=== PATIENT | male | born 1960 | race Two or more races ===

== ENCOUNTER 2017-03-31 11:08 | Inpatient (IN) | payer MEDICAID, OTHER ==
[~2017-03-31] VITALS: Ht 160 cm; Wt 96.6 kg
[2017-03-31] MEDS ORDERED: ASPirin 81 mg TAB ONE (11:27)
[2017-03-31] MEDS ORDERED: DILTIAZEM HCL 25 MG/5 ML VIAL IV ONE ×2 (11:27→12:00)
[2017-03-31] MEDS ORDERED: SODIUM CHLORIDE 0.9% 1,000 ML IVB ONE (11:41)
[2017-03-31] MEDS ORDERED: ASPirin 81 mg TAB PO ONE ×2 (11:45→12:00)
[2017-03-31 11:47] LABS: Basophils # (auto) 0 uL; Basophils % (auto) 0.3 % (0.0-2.0); CONDITION Y; Eosinophils # (auto) 0.1 uL; Eosinophils % (auto) 0.7 % (0.0-7.0); Hemoglobin 16.5 g/dL (13.5-17.5); Lymphocytes # (auto) 2.9 uL; Lymphocytes % (auto) 31.9 % (10.0-50.0); Mean Corpuscular Hemoglobin 30.8 pg (28.0-32.0); Mean Corpuscular Hgb Conc. 33.7 g/dL (32.0-36.0); Mean Corpuscular Volume 91.6 fL (80.0-100.0); Mean Platelet Volume 9.3 fL (7.4-10.4); Monocytes # (auto) 0.6 uL; Neutrophils # (auto) 5.4 uL; Neutrophils % (auto) 60.1 % (37.0-80.0); Platelet Count (auto) 249 10^3/uL (140-450); Red Cell Distribution Width 13.7 % (11.6-16.0)
[2017-03-31] MEDS ORDERED: ONDANSETRON HCL 4 MG/2 ML VIAL IV ONE (12:00)
[2017-03-31 12:04] LABS: Potassium 4.4 mmol/L (3.5-5.1)
[2017-03-31 12:06] LABS: INR 0.99 (0.9-1.15); Partial Thromboplastin Time 26.1 sec (22.64-33.71); Prothrombin Time 10.8 sec (9.37-12.3)
[2017-03-31 12:12] LABS: Albumin 4.3 g/dL (3.4-5.0); BUN/Creatinine Ratio 17.1; Calcium 9.3 mg/dL (8.5-10.1); Magnesium 2.6 mg/dL (1.6-2.6)
[2017-03-31 12:14] LABS: B-Type Natriuretic Peptide 146.7 pg/mL (0-100)
[2017-03-31 12:15] LABS: Bilirubin, Total 0.6 mg/dL (0.2-1.0); Total Protein 8.5 g/dL (6.4-8.2)
[2017-03-31 12:25] LABS: Temperature: 23.3 C (20.0-25.0)
[2017-03-31] MEDS ORDERED: ACETAMINOPHEN 500 MG TAB PO PRN (13:15)
[2017-03-31] MEDS ORDERED: TEMAZEPAM 15 MG CAP PO PRN (13:15)
[2017-03-31] MEDS ORDERED: LORazepam 0.5 MG TAB PO PRN (13:15)
[2017-03-31] MEDS ORDERED: DEXTROSE (50%) 50ML SYRG IV PRN (13:15)
[2017-03-31] MEDS ORDERED: PROMETHAZINE HCL 25 MG/ML 1ML IV PRN (13:15)
[2017-03-31] MEDS ORDERED: LACTULOSE 20Gm/30ML SOLN PO PRN ×2 (13:15→16:02)
[2017-03-31] MEDS ORDERED: MORPHINE SULF INJ 2 MG/ML SYRINGE 1ML IV PRN ×2 (13:15)
[2017-03-31] MEDS ORDERED: NITROGLYCERIN 0.4 MG SL TAB SL PRN (13:15)
[2017-03-31] MEDS ORDERED: METOPROLOL TARTRATE 25 MG TAB PO ONE (13:45)
[2017-03-31] MEDS ORDERED: PANTOPRAZOLE 40 MG TAB PO ONE (13:45)
[2017-03-31] MEDS: SODIUM CHLORIDE 0.9% 1,000 ML IV SCH (13:45)
[2017-03-31] MEDS ORDERED: ENOXAPARIN SOD 100 MG/1 ML SYRINGE SC ONE (13:45)
[2017-03-31] MEDS: SODIUM CHLOR 0.9% PF (SALINE LOCK) 10ML VIAL IV SCH ×2 (13:53→22:00)
[2017-03-31] MEDS ORDERED: WARFARIN SODIUM 5 MG TAB PO ONE (17:00)
[2017-03-31] MEDS: ACCU-CHEK COMFORT CURVE STRIP VI SCH (17:56)
[2017-03-31] MEDS: METOPROLOL TARTRATE 25 MG TAB PO SCH (23:13)
[2017-03-31] MEDS: ENOXAPARIN SOD 100 MG/1 ML SYRINGE SC SCH (23:13)
[2017-03-31] MEDS: ATORVASTATIN 20 MG TAB PO SCH (23:13)
[2017-04-01] MEDS: ACCU-CHEK COMFORT CURVE STRIP VI SCH ×5 (00:08→23:16)
[2017-04-01] MEDS: SODIUM CHLORIDE 0.9% 1,000 ML IV SCH ×2 (03:07→19:50)
[2017-04-01] MEDS: SODIUM CHLOR 0.9% PF (SALINE LOCK) 10ML VIAL IV SCH ×3 (06:00→23:00)
[2017-04-01 06:28] LABS: Basophils # (auto) 0 uL; Basophils % (auto) 0.3 % (0.0-2.0); CONDITION Y; Eosinophils # (auto) 0.1 uL; Eosinophils % (auto) 1.8 % (0.0-7.0); Hematocrit 40.2 % (41.0-53.0); Hemoglobin 13.5 g/dL (13.5-17.5); Lymphocytes # (auto) 2.4 uL; Lymphocytes % (auto) 34.1 % (10.0-50.0); Mean Corpuscular Hemoglobin 31.3 pg (28.0-32.0); Mean Corpuscular Hgb Conc. 33.7 g/dL (32.0-36.0); Mean Corpuscular Volume 92.9 fL (80.0-100.0); Monocytes # (auto) 0.6 uL; Neutrophils # (auto) 3.9 uL; Neutrophils % (auto) 55.8 % (37.0-80.0); Platelet Count (auto) 188 10^3/uL (140-450); White Blood Cell 6.9 10^3/uL (4.4-10.8)
[2017-04-01 06:37] LABS: INR 1.09 (0.9-1.15); Prothrombin Time 11.9 sec (9.37-12.3)
[2017-04-01 07:12] LABS: Albumin 3.3 g/dL (3.4-5.0); Bilirubin, Total 0.4 mg/dL (0.2-1.0); Calcium 8.2 mg/dL (8.5-10.1); Total Protein 6.6 g/dL (6.4-8.2)
[2017-04-01 07:27] LABS: B-Type Natriuretic Peptide 231.8 pg/mL (0-100)
[2017-04-01 07:30] LABS: Temperature: 22.5 C (20.0-25.0)
[2017-04-01] MEDS ORDERED: LORazepam 2MG/ML-1ML VIAL ONE (08:48)
[2017-04-01] MEDS ORDERED: LORazepam 2MG/ML-1ML VIAL IV ONE (09:00)
[2017-04-01] MEDS ORDERED: ADENOSINE 76 MG in GIVE UN-DILUTED 0 ML IV ONE (10:00)
[2017-04-01] MEDS: ASPirin 81 mg TAB PO SCH (13:37)
[2017-04-01] MEDS: METOPROLOL TARTRATE 25 MG TAB PO SCH ×2 (13:37→23:01)
[2017-04-01] MEDS: PANTOPRAZOLE 40 MG TAB PO SCH (13:38)
[2017-04-01] MEDS: ENOXAPARIN SOD 100 MG/1 ML SYRINGE SC SCH ×2 (13:38→23:01)
[2017-04-01] MEDS ORDERED: WARFARIN SODIUM 10 MG TAB PO ONE (17:00)
[2017-04-01] MEDS ORDERED: LORA-655 PO (21:29)
[2017-04-01] MEDS ORDERED: ASPI81TA27 PO (21:29)
[2017-04-01] MEDS ORDERED: PIRO-23 PO (21:29)
[2017-04-01] MEDS ORDERED: CITA-77 PO (21:29)
[2017-04-01] MEDS ORDERED: IBUP800T24 PO (21:29)
[2017-04-01] MEDS ORDERED: SIMV-13 PO (21:29)
[2017-04-01] MEDS ORDERED: METO25TA5 PO (21:29)
[2017-04-01 22:00] VITALS: BP 109/74
[2017-04-01] MEDS: ATORVASTATIN 20 MG TAB PO SCH (23:01)
[2017-04-02] MEDS: SODIUM CHLOR 0.9% PF (SALINE LOCK) 10ML VIAL IV SCH ×3 (04:34→21:36)
[2017-04-02] MEDS: SODIUM CHLORIDE 0.9% 1,000 ML IV SCH ×2 (04:34→16:26)
[2017-04-02 05:30] VITALS: BP 123/85
[2017-04-02] MEDS: ACCU-CHEK COMFORT CURVE STRIP VI SCH ×4 (05:32→23:45)
[2017-04-02 05:51] LABS: INR 1.45 (0.9-1.15)
[2017-04-02 05:53] LABS: Prothrombin Time 15.9 sec (9.37-12.3)
[2017-04-02] MEDS ORDERED: IOHEXOL 350 MG/ML 100ML IJ ONE (07:20)
[2017-04-02] MEDS ORDERED: LIDOCAINE 2%HCL (LOCAL ANESTH.) INJ 20ML MDV ONE (07:20)
[2017-04-02] MEDS ORDERED: fentaNYL CITRATE 100 MCG/2 ML VL ONE (07:42)
[2017-04-02] MEDS ORDERED: SODIUM CHL 0.9% 0 ML ONE (07:42)
[2017-04-02] MEDS ORDERED: ANGIOMAX 250 MG VIAL IV ONE (07:42)
[2017-04-02] MEDS ORDERED: MIDAZOLAM HCL 1MG/1ML-2 ML VIAL ONE (07:42)
[2017-04-02 08:00] VITALS: BP 114/82
[2017-04-02] MEDS ORDERED: SODIUM CHLORIDE 0.9% 1,000 ML IV SCH (08:26)
[2017-04-02] MEDS: ASPirin 81 mg TAB PO SCH (10:00)
[2017-04-02 10:30] VITALS: BP 141/82
[2017-04-02 13:00] VITALS: BP 119/72
[2017-04-02] MEDS: HYDROcodone-ACET 5/325MG TAB PO PRN ×3 (14:32→23:01)
[2017-04-02] MEDS: CLOPIDOGREL BISULFATE 75 MG TAB PO SCH (15:15)
[2017-04-02] MEDS: PANTOPRAZOLE 40 MG TAB PO SCH (15:15)
[2017-04-02] MEDS: ENOXAPARIN SOD 100 MG/1 ML SYRINGE SC SCH ×2 (15:16→21:37)
[2017-04-02] MEDS: METOPROLOL TARTRATE 25 MG TAB PO SCH ×2 (15:45→21:37)
[2017-04-02 16:45] VITALS: BP 113/82
[2017-04-02] MEDS ORDERED: WARFARIN SODIUM 2.5 MG TAB PO ONE (17:00)
[2017-04-02] MEDS: ATORVASTATIN 20 MG TAB PO SCH (21:36)
[2017-04-02 21:42] VITALS: BP 122/81
[2017-04-03 04:37] VITALS: BP 116/76
[2017-04-03 05:22] LABS: Basophils # (auto) 0 uL; Basophils % (auto) 0.3 % (0.0-2.0); CONDITION Y; Eosinophils # (auto) 0.1 uL; Eosinophils % (auto) 1.4 % (0.0-7.0); Hemoglobin 13.1 g/dL (13.5-17.5); Lymphocytes # (auto) 2.4 uL; Lymphocytes % (auto) 32.6 % (10.0-50.0); Mean Corpuscular Hgb Conc. 33.7 g/dL (32.0-36.0); Mean Corpuscular Volume 91.9 fL (80.0-100.0); Mean Platelet Volume 9.2 fL (7.4-10.4); Monocytes # (auto) 0.6 uL; Monocytes % (auto) 8.7 % (0.0-12.0); Neutrophils # (auto) 4.1 uL; Platelet Count (auto) 169 10^3/uL (140-450); Red Cell Distribution Width 13.9 % (11.6-16.0); White Blood Cell 7.3 10^3/uL (4.4-10.8)
[2017-04-03 05:32] LABS: INR 2.19 (0.9-1.15)
[2017-04-03 05:36] LABS: Prothrombin Time 24.1 sec (9.37-12.3)
[2017-04-03 05:38] LABS: BUN/Creatinine Ratio 22.6; Calcium 8.3 mg/dL (8.5-10.1); Potassium 4.5 mmol/L (3.5-5.1)
[2017-04-03] MEDS: SODIUM CHLOR 0.9% PF (SALINE LOCK) 10ML VIAL IV SCH (06:13)
[2017-04-03] MEDS: ACCU-CHEK COMFORT CURVE STRIP VI SCH (06:13)
[2017-04-03] MEDS: SODIUM CHLORIDE 0.9% 1,000 ML IV SCH (07:52)
[2017-04-03 09:00] VITALS: BP 126/81
[2017-04-03] MEDS: ASPirin 81 mg TAB PO SCH (10:12)
[2017-04-03] MEDS: CLOPIDOGREL BISULFATE 75 MG TAB PO SCH (10:13)
[2017-04-03] MEDS: PANTOPRAZOLE 40 MG TAB PO SCH (10:13)
[2017-04-03] MEDS: METOPROLOL TARTRATE 25 MG TAB PO SCH (10:13)
[2017-04-03] MEDS: ENOXAPARIN SOD 100 MG/1 ML SYRINGE SC SCH (10:14)
[2017-04-03 11:28] VITALS: BP 126/81
[2017-04-03] MEDS ORDERED: WARFARIN SODIUM 2 MG TAB PO ONE (17:00)
== END 2017-04-03 12:47 | disposition home or self-care (01) | DRG 192 ==
LOC: ER 11:08 → TELE 11:09 → TELE-WESTW 04-01 20:33
PROVIDERS: ADMIT Internal Medicine; ATTEND Family Medicine
PROC: 4A023N7 Measurement of Cardiac Sampling and Pressure, Left Heart, Percutaneous Approach (ICD-10-PCS; principal; 2017-04-02)
PROC: B2111ZZ Fluoroscopy of Multiple Coronary Arteries using Low Osmolar Contrast (ICD-10-PCS; 2017-04-02)
PROC: B2151ZZ Fluoroscopy of Left Heart using Low Osmolar Contrast (ICD-10-PCS; 2017-04-02)
DX: I48.91 Unspecified atrial fibrillation (principal); I50.41 Acute combined systolic (congestive) and diastolic (congestive) heart failure; N17.9 Acute kidney failure, unspecified; D68.69 Other thrombophilia; I42.0 Dilated cardiomyopathy; E66.01 Morbid (severe) obesity due to excess calories; I11.0 Hypertensive heart disease with heart failure; E78.5 Hyperlipidemia, unspecified; I25.10 Atherosclerotic heart disease of native coronary artery without angina pectoris; I25.5 Ischemic cardiomyopathy; I44.7 Left bundle-branch block, unspecified; Q21.9 Congenital malformation of cardiac septum, unspecified; I25.2 Old myocardial infarction; Z95.5 Presence of coronary angioplasty implant and graft; Z79.01 Long term (current) use of anticoagulants; Z82.49 Family history of ischemic heart disease and other diseases of the circulatory system; Z83.3 Family history of diabetes mellitus; Z68.37 Body mass index [BMI] 37.0-37.9, adult
CPT/HCPCS: 36415; 71010; 80048; 80053; 80061; 80307; 82550; 82962; 83036; 83735; 83880; 84443; 84484; 85025; 85379; 85610; 85652; 85730; 86141; 93005; 93017; 93306; 93458; 96361; 96374; 96375; 99152; 99291; J0153; J2250; J2405

== ENCOUNTER 2017-08-21 03:40 | Inpatient (IN) | payer MEDICAID ==
[~2017-08-21] VITALS: Ht 162.6 cm; Wt 90.8 kg
[~2017-08-21 03:40] MED LIST: ASPI81TA27 PO; ENAL2.5T PO; FENO54TA4 PO; LORA-655 PO; METO25TA5 PO; SIMV-13 PO; SPIR25TA89 PO; WARF2TAB49 PO
[2017-08-21] MEDS ORDERED: SODIUM CHLORIDE 0.9% 1,000 ML IV ONE (08:25)
[2017-08-21 10:32] LABS: Basophils # (auto) 0 uL; Basophils % (auto) 0.4 % (0.0-2.0); Eosinophils # (auto) 0 uL; Eosinophils % (auto) 0.1 % (0.0-7.0); Hematocrit 45.2 % (41.0-53.0); Lymphocytes # (auto) 1.7 uL; Lymphocytes % (auto) 15.7 % (10.0-50.0); Mean Corpuscular Hemoglobin 30.6 pg (28.0-32.0); Mean Corpuscular Hgb Conc. 33.2 g/dL (32.0-36.0); Mean Corpuscular Volume 92.1 fL (80.0-100.0); Monocytes # (auto) 0.6 uL; Monocytes % (auto) 5.3 % (0.0-12.0); Neutrophils # (auto) 8.7 uL; Neutrophils % (auto) 78.5 % (37.0-80.0); Nucleated Red Blood Cells % 0.1 %; Platelet Count (auto) 213 10^3/uL (140-450); Red Blood Cells 4.91 10^6/uL (4.5-5.90); White Blood Cell 11.1 10^3/uL (4.4-10.8)
[2017-08-21 10:47] LABS: INR 2.12 (0.9-1.15); Partial Thromboplastin Time 32.9 sec (22.64-33.71); Prothrombin Time 23.3 sec (9.37-12.3)
[2017-08-21 10:53] LABS: Albumin 4.2 g/dL (3.4-5.0); BUN/Creatinine Ratio 28.9; Bilirubin, Total 0.5 mg/dL (0.2-1.0); Calcium 8.9 mg/dL (8.5-10.1); Magnesium 2.5 mg/dL (1.6-2.6); Potassium 4.6 mmol/L (3.5-5.1); Total Protein 8.1 g/dL (6.4-8.2)
[2017-08-21] MEDS ORDERED: HYDROcodone-ACET 5/325MG TAB PO PRN (12:00)
[2017-08-21] MEDS ORDERED: MORPHINE SULF INJ 2 MG/ML SYRINGE 1ML IV PRN (12:00)
[2017-08-21] MEDS ORDERED: LACTULOSE 20Gm/30ML SOLN PO PRN (12:00)
[2017-08-21] MEDS ORDERED: PROMETHAZINE HCL 25 MG/ML 1ML IV PRN (12:00)
[2017-08-21] MEDS ORDERED: NITROGLYCERIN 0.4 MG SL TAB SL PRN (12:00)
[2017-08-21] MEDS ORDERED: ACETAMINOPHEN 500 MG TAB PO PRN (12:00)
[2017-08-21] MEDS ORDERED: TEMAZEPAM 15 MG CAP PO PRN (12:00)
[2017-08-21] MEDS ORDERED: MORPHINE SULFATE 4 MG/ML SYR/VIAL IV PRN (12:00)
[2017-08-21] MEDS ORDERED: ENALAPRIL MALEATE 10 MG TAB PO SCH (12:26)
[2017-08-21] MEDS ORDERED: METOPROLOL TARTRATE 25 MG TAB PO SCH (12:26)
[2017-08-21] MEDS: NITROGLYCERIN 0.2MG/HR TOPICAL PATCH TD SCH (12:44)
[2017-08-21] MEDS: SPIRONOLACTONE 25 MG TAB PO SCH (12:44)
[2017-08-21 13:14] LABS: Urine Bacteria NONE SEEN /hpf (None Seen); Urine Blood Negative /uL (Negative); Urine Budding Yeast OCCASIONAL /hpf (None Seen); Urine WBC 1 /hpf (0 - 3)
[2017-08-21 13:23] LABS: Alcohol, Urine < 3.0 mg/dL (0-5); Amphetamine Screen, Urine NEGATIVE (NEGATIVE); Barbiturate Scree,Urine NEGATIVE (NEGATIVE); Benzodiazephine Screen, Urine NEGATIVE (NEGATIVE); Cannabinoid Screen, Urine NEGATIVE (NEGATIVE); Cocaine Screen, Urine NEGATIVE (NEGATIVE); Opiate Scree,Urine NEGATIVE (NEGATIVE); Phencyclidine Screen, Urine NEGATIVE (NEGATIVE)
[2017-08-21] MEDS: SODIUM CHLOR 0.9% PF (SALINE LOCK) 10ML VIAL IV SCH ×2 (14:02→22:01)
[2017-08-21] MEDS ORDERED: LOSA50TA6 PO (16:09)
[2017-08-21] MEDS ORDERED: WARFARIN SODIUM 2 MG TAB PO ONE (17:00)
[2017-08-21] MEDS: ATORVASTATIN 20 MG TAB PO SCH (22:01)
[2017-08-21] MEDS: METOPROLOL SUCCINATE XL 50 MG TAB PO SCH (22:01)
[2017-08-21] MEDS: ASPirin-EC 81 mg tab PO SCH (22:01)
[2017-08-21] MEDS ORDERED: LORazepam 0.5 MG TAB PO PRN (22:15)
[2017-08-22] MEDS: SODIUM CHLOR 0.9% PF (SALINE LOCK) 10ML VIAL IV SCH ×3 (05:32→22:00)
[2017-08-22 07:57] LABS: Basophils # (auto) 0 uL; Basophils % (auto) 0.3 % (0.0-2.0); Eosinophils # (auto) 0 uL; Eosinophils % (auto) 0.6 % (0.0-7.0); Hematocrit 43.9 % (41.0-53.0); Hemoglobin 14.7 g/dL (13.5-17.5); Lymphocytes # (auto) 2.3 uL; Lymphocytes % (auto) 27.2 % (10.0-50.0); Mean Corpuscular Hemoglobin 31.2 pg (28.0-32.0); Mean Corpuscular Hgb Conc. 33.5 g/dL (32.0-36.0); Mean Corpuscular Volume 92.9 fL (80.0-100.0); Monocytes # (auto) 0.8 uL; Monocytes % (auto) 9.4 % (0.0-12.0); Neutrophils # (auto) 5.3 uL; Neutrophils % (auto) 62.5 % (37.0-80.0); Platelet Count (auto) 209 10^3/uL (140-450); Red Blood Cells 4.72 10^6/uL (4.5-5.90); Red Cell Distribution Width 13.8 % (11.8-14.3); White Blood Cell 8.5 10^3/uL (4.4-10.8)
[2017-08-22 08:15] LABS: INR 1.62 (0.9-1.15); Partial Thromboplastin Time 30.6 sec (22.64-33.71); Prothrombin Time 17.7 sec (9.37-12.3)
[2017-08-22 08:32] LABS: BUN/Creatinine Ratio 22.9; Bilirubin, Total 0.7 mg/dL (0.2-1.0); Calcium 8.8 mg/dL (8.5-10.1); Potassium 3.9 mmol/L (3.5-5.1); Total Protein 7.9 g/dL (6.4-8.2)
[2017-08-22] MEDS: NITROGLYCERIN 0.2MG/HR TOPICAL PATCH TD SCH (10:00)
[2017-08-22] MEDS ORDERED: LOSARTAN POTASSIUM 50 MG TAB PO SCH (10:00)
[2017-08-22] MEDS: Fenofibrate 48 MG PO SCH (10:52)
[2017-08-22] MEDS: SPIRONOLACTONE 25 MG TAB PO SCH (10:55)
[2017-08-22] MEDS: METOPROLOL SUCCINATE XL 50 MG TAB PO SCH ×2 (10:55→22:39)
[2017-08-22] MEDS ORDERED: WARFARIN SODIUM 2 MG TAB PO ONE (17:00)
[2017-08-22] MEDS: ASPirin-EC 81 mg tab PO SCH (22:38)
[2017-08-22] MEDS: ATORVASTATIN 20 MG TAB PO SCH (22:38)
[2017-08-23 05:16] VITALS: BP 118/74
[2017-08-23 06:02] LABS: INR 1.67 (0.9-1.15); Partial Thromboplastin Time 30.3 sec (22.64-33.71); Prothrombin Time 18.3 sec (9.37-12.3)
[2017-08-23] MEDS: SODIUM CHLOR 0.9% PF (SALINE LOCK) 10ML VIAL IV SCH ×2 (06:29→13:29)
[2017-08-23 07:30] VITALS: BP 127/79
[2017-08-23 09:00] VITALS: BP 129/79
[2017-08-23] MEDS: Fenofibrate 48 MG PO SCH (10:00)
[2017-08-23] MEDS: NITROGLYCERIN 0.2MG/HR TOPICAL PATCH TD SCH (10:04)
[2017-08-23] MEDS: SPIRONOLACTONE 25 MG TAB PO SCH (10:04)
[2017-08-23] MEDS: METOPROLOL SUCCINATE XL 50 MG TAB PO SCH (10:04)
[2017-08-23 13:00] VITALS: BP 112/66
[2017-08-23] MEDS ORDERED: SPIR25TA89 PO (15:24)
[2017-08-23] MEDS ORDERED: METO25TA5 PO (15:24)
[2017-08-23] MEDS ORDERED: LOSA50TA6 PO (15:24)
[2017-08-23 16:55] VITALS: BP 108/70
[2017-08-23] MEDS ORDERED: WARFARIN SODIUM 2 MG TAB PO ONE (17:00)
[2017-08-23 18:14] VITALS: BP 127/79
[2017-08-23] MEDS ORDERED: LOSARTAN POTASSIUM 50 MG TAB PO SCH (20:00)
== END 2017-08-23 19:14 | disposition home or self-care (01) | DRG 206 ==
LOC: EDBD 03:40 → ER 03:40 → EDUNIT# 03:40 → TELE 03:41 → TELE-WESTW 08-22 19:36
PROVIDERS: ADMIT Internal Medicine; ATTEND Internal Medicine
PROC: 4B02XTZ Measurement of Cardiac Defibrillator, External Approach (ICD-10-PCS; principal; 2017-08-21)
DX: T82.897A Other specified complication of cardiac prosthetic devices, implants and grafts, initial encounter (principal); I42.0 Dilated cardiomyopathy; I50.20 Unspecified systolic (congestive) heart failure; I11.0 Hypertensive heart disease with heart failure; I47.1 Supraventricular tachycardia; D68.69 Other thrombophilia; I48.0 Paroxysmal atrial fibrillation; G40.909 Epilepsy, unspecified, not intractable, without status epilepticus; E78.5 Hyperlipidemia, unspecified; M47.814 Spondylosis without myelopathy or radiculopathy, thoracic region; I25.10 Atherosclerotic heart disease of native coronary artery without angina pectoris; M19.90 Unspecified osteoarthritis, unspecified site; E66.9 Obesity, unspecified; Y84.8 Other medical procedures as the cause of abnormal reaction of the patient, or of later complication, without mention of misadventure at the time of the procedure; I25.5 Ischemic cardiomyopathy; Z79.01 Long term (current) use of anticoagulants; Z82.49 Family history of ischemic heart disease and other diseases of the circulatory system; Z83.3 Family history of diabetes mellitus; Z86.73 Personal history of transient ischemic attack (TIA), and cerebral infarction without residual deficits; Z95.5 Presence of coronary angioplasty implant and graft; Z95.810 Presence of automatic (implantable) cardiac defibrillator; Y92.89 Other specified places as the place of occurrence of the external cause; Z68.34 Body mass index [BMI] 34.0-34.9, adult
CPT/HCPCS: 36415; 71020; 80053; 80061; 80307; 81001; 82550; 83735; 84443; 84484; 85025; 85379; 85610; 85652; 85730; 86141; 93005; 94761

== ENCOUNTER 2017-09-03 15:44 | Inpatient (IN) | payer MEDICAID ==
[~2017-09-03] VITALS: Ht 154.9 cm; Wt 88.9 kg
[~2017-09-03 15:44] MED LIST changes: -ENAL2.5T PO; +LOSA50TA6 PO
[2017-09-03 16:36] LABS: Basophils # (auto) 0.1 uL; Basophils % (auto) 1.1 % (0.0-2.0); Eosinophils # (auto) 0.1 uL; Eosinophils % (auto) 0.8 % (0.0-7.0); Hematocrit 41.4 % (41.0-53.0); Hemoglobin 14.1 g/dL (13.5-17.5); Lymphocytes % (auto) 18.4 % (10.0-50.0); Mean Corpuscular Hgb Conc. 34.1 g/dL (32.0-36.0); Monocytes % (auto) 8.9 % (0.0-12.0); Neutrophils # (auto) 7.6 uL; Neutrophils % (auto) 70.8 % (37.0-80.0); Nucleated Red Blood Cells % 0.1 %; Platelet Count (auto) 238 10^3/uL (140-450); Red Blood Cells 4.55 10^6/uL (4.5-5.90); Red Cell Distribution Width 13.7 % (11.8-14.3); White Blood Cell 10.7 10^3/uL (4.4-10.8)
[2017-09-03 16:53] LABS: BUN/Creatinine Ratio 14.5; Calcium 8.8 mg/dL (8.5-10.1); Potassium 4.2 mmol/L (3.5-5.1)
[2017-09-03 16:56] LABS: Bilirubin, Total 0.3 mg/dL (0.2-1.0); Total Protein 7.8 g/dL (6.4-8.2)
[2017-09-03 17:45] LABS: INR > 10 (0.9-1.15)
[2017-09-03 22:13] LABS: Urine Bacteria NONE SEEN /hpf (None Seen); Urine Blood 3+ /uL (Negative); Urine Specific Gravity 1.021 (1.001-1.035); Urine WBC 32 /hpf (0 - 3)
[2017-09-03] MEDS ORDERED: PHYTONADIONE (VIT K)10 MG/ML 1ML VIAL SUBCUT ONE (23:00)
[2017-09-03] MEDS ORDERED: LORazepam 0.5 MG TAB ONE (23:15)
[2017-09-03] MEDS ORDERED: LORazepam 0.5 MG TAB PO ONE (23:15)
[2017-09-04] VITALS (7 sets, daily range): BP systolic 108–128; BP diastolic 62–82
[2017-09-04 00:37] LABS: INR > 10 (0.9-1.15)
[2017-09-04] MEDS ORDERED: ONDANSETRON HCL 4 MG/2 ML VIAL IV PRN (01:15)
[2017-09-04] MEDS ORDERED: HYDROcodone-ACET 5/325MG TAB PO PRN (01:15)
[2017-09-04] MEDS ORDERED: ACETAMINOPHEN 500 MG TAB PO PRN (01:15)
[2017-09-04] MEDS ORDERED: LORazepam 0.5 MG TAB PO PRN (01:15)
[2017-09-04] MEDS ORDERED: cefTRIAXone 1GM/10ml IVPUSH 10 ML IV ONE (01:30)
[2017-09-04 07:22] LABS: Basophils # (auto) 0 uL; Basophils % (auto) 0.4 % (0.0-2.0); Eosinophils # (auto) 0.1 uL; Eosinophils % (auto) 0.6 % (0.0-7.0); Hematocrit 39.2 % (41.0-53.0); Hemoglobin 13.3 g/dL (13.5-17.5); Lymphocytes # (auto) 1.8 uL; Lymphocytes % (auto) 20.4 % (10.0-50.0); Mean Corpuscular Hemoglobin 31.1 pg (28.0-32.0); Mean Corpuscular Hgb Conc. 33.9 g/dL (32.0-36.0); Mean Corpuscular Volume 91.6 fL (80.0-100.0); Monocytes # (auto) 0.8 uL; Monocytes % (auto) 9.1 % (0.0-12.0); Neutrophils # (auto) 6.3 uL; Neutrophils % (auto) 69.5 % (37.0-80.0); Nucleated Red Blood Cells % 0.1 %; Platelet Count (auto) 200 10^3/uL (140-450); Red Blood Cells 4.28 10^6/uL (4.5-5.90); White Blood Cell 9.1 10^3/uL (4.4-10.8)
[2017-09-04 07:36] LABS: INR > 10 (0.9-1.15)
[2017-09-04 07:43] LABS: BUN/Creatinine Ratio 22.1; Calcium 8.5 mg/dL (8.5-10.1); Potassium 4.5 mmol/L (3.5-5.1)
[2017-09-04] MEDS: LOSARTAN POTASSIUM 50 MG TAB PO SCH (10:00)
[2017-09-04] MEDS: SPIRONOLACTONE 25 MG TAB PO SCH (11:13)
[2017-09-04] MEDS: METOPROLOL TARTRATE 25 MG TAB PO SCH ×2 (11:13→21:40)
[2017-09-04] MEDS ORDERED: PHYTONADIONE ORAL Susp 10 mg/10ml PO ONE (14:45)
[2017-09-04] MEDS ORDERED: cefTRIAXone 1GM/10ml IVPUSH 10 ML IV SCH (22:00)
[2017-09-05 05:35] LABS: Basophils # (auto) 0 uL; Basophils % (auto) 0.5 % (0.0-2.0); Eosinophils # (auto) 0.1 uL; Eosinophils % (auto) 0.7 % (0.0-7.0); Hematocrit 40.2 % (41.0-53.0); Hemoglobin 13.7 g/dL (13.5-17.5); Lymphocytes # (auto) 2.4 uL; Lymphocytes % (auto) 25.5 % (10.0-50.0); Mean Corpuscular Hemoglobin 31.6 pg (28.0-32.0); Mean Corpuscular Hgb Conc. 34.2 g/dL (32.0-36.0); Mean Corpuscular Volume 92.4 fL (80.0-100.0); Monocytes # (auto) 0.9 uL; Monocytes % (auto) 9.8 % (0.0-12.0); Neutrophils # (auto) 5.9 uL; Neutrophils % (auto) 63.5 % (37.0-80.0); Nucleated Red Blood Cells % 0.5 %; Platelet Count (auto) 242 10^3/uL (140-450); Red Blood Cells 4.35 10^6/uL (4.5-5.90); Red Cell Distribution Width 13.5 % (11.8-14.3); White Blood Cell 9.2 10^3/uL (4.4-10.8)
[2017-09-05 05:48] LABS: Albumin 3.5 g/dL (3.4-5.0); BUN/Creatinine Ratio 19.2; Calcium 8.8 mg/dL (8.5-10.1); INR 1.89 (0.9-1.15); Prothrombin Time 20.7 sec (9.37-12.3)
[2017-09-05 05:50] LABS: Bilirubin, Total 0.7 mg/dL (0.2-1.0); Total Protein 7.2 g/dL (6.4-8.2)
[2017-09-05 06:00] VITALS: BP 112/77
[2017-09-05 08:00] VITALS: BP 112/71
[2017-09-05 09:00] VITALS: BP 116/77
[2017-09-05] MEDS: LOSARTAN POTASSIUM 50 MG TAB PO SCH (10:00)
[2017-09-05] MEDS: SPIRONOLACTONE 25 MG TAB PO SCH (10:46)
[2017-09-05] MEDS: METOPROLOL TARTRATE 25 MG TAB PO SCH (10:47)
[2017-09-05] MEDS ORDERED: WARF6TAB20 PO (12:29)
[2017-09-05 12:50] VITALS: BP 115/80
[2017-09-05 13:00] VITALS: BP 115/80
== END 2017-09-05 14:39 | disposition home or self-care (01) | DRG 661 ==
LOC: ER 15:50 → TELE 15:51 → TELE-EAST 09-04 02:07
PROVIDERS: ADMIT Nurse Practitioner Family; ATTEND Nurse Practitioner Family
DX: D68.32 Hemorrhagic disorder due to extrinsic circulating anticoagulants (principal); I48.92 Unspecified atrial flutter; I10 Essential (primary) hypertension; G40.909 Epilepsy, unspecified, not intractable, without status epilepticus; I48.91 Unspecified atrial fibrillation; T45.515A Adverse effect of anticoagulants, initial encounter; E11.9 Type 2 diabetes mellitus without complications; N39.0 Urinary tract infection, site not specified; R31.9 Hematuria, unspecified; I25.10 Atherosclerotic heart disease of native coronary artery without angina pectoris; Z86.73 Personal history of transient ischemic attack (TIA), and cerebral infarction without residual deficits; Z83.3 Family history of diabetes mellitus; Z79.899 Other long term (current) drug therapy; Z79.82 Long term (current) use of aspirin; Z95.0 Presence of cardiac pacemaker; Z82.49 Family history of ischemic heart disease and other diseases of the circulatory system; Y92.89 Other specified places as the place of occurrence of the external cause
CPT/HCPCS: 36415; 70450; 80048; 80053; 81001; 85025; 85610; 85730; 87081; 87086; 93005; J3430

== ENCOUNTER → 2017-09-27 | Outpatient (CLI) | payer MEDICAID ==
[~2017-09-27] MED LIST changes: -WARF2TAB49 PO; +WARF6TAB20 PO
== END | disposition home or self-care (01) ==
LOC: Rad HDHVI 09:56
PROVIDERS: ATTEND Internal Medicine Cardiovascular Disease
DX: I07.1 Rheumatic tricuspid insufficiency (principal); I50.33 Acute on chronic diastolic (congestive) heart failure
CPT/HCPCS: 93306

== ENCOUNTER 2017-12-23 11:29 | Emergency (ER) | payer MEDICAID ==
[~2017-12-23] VITALS: Ht 160 cm; Wt 86.2 kg
[~2017-12-23 11:29] MED LIST changes: -FENO54TA4 PO
[2017-12-23 12:18] LABS: Basophils # (auto) 0.1 uL; Basophils % (auto) 0.6 % (0.0-2.0); Eosinophils # (auto) 0 uL; Eosinophils % (auto) 0.5 % (0.0-7.0); Hemoglobin 14.4 g/dL (13.5-17.5); Lymphocytes # (auto) 1.6 uL; Lymphocytes % (auto) 16.5 % (10.0-50.0); Mean Corpuscular Hemoglobin 30.8 pg (28.0-32.0); Mean Corpuscular Hgb Conc. 33.5 g/dL (32.0-36.0); Mean Corpuscular Volume 92.1 fL (80.0-100.0); Monocytes # (auto) 0.7 uL; Monocytes % (auto) 7.6 % (0.0-12.0); Neutrophils # (auto) 7.2 uL; Neutrophils % (auto) 74.8 % (37.0-80.0); Platelet Count (auto) 222 10^3/uL (140-450); Red Blood Cells 4.67 10^6/uL (4.5-5.90); Red Cell Distribution Width 13.8 % (11.8-14.3); White Blood Cell 9.6 10^3/uL (4.4-10.8)
[2017-12-23 12:39] LABS: Prothrombin Time 107.4 sec (9.37-12.3)
[2017-12-23 12:45] LABS: INR 9.63 (0.9-1.15)
[2017-12-23 12:51] VITALS: BP 122/77
[2017-12-23 13:15] LABS: Albumin 4.2 g/dL (3.4-5.0); BUN/Creatinine Ratio 20.8; Bilirubin, Total 0.6 mg/dL (0.2-1.0); Calcium 8.9 mg/dL (8.5-10.1); Potassium 4.4 mmol/L (3.5-5.1); Total Protein 7.9 g/dL (6.4-8.2)
[2017-12-23] MEDS ORDERED: PHYTONADIONE (VIT K)10 MG/ML 1ML VIAL SUBCUT ONE (13:30)
== END 2017-12-23 13:57 | disposition home or self-care (01) ==
LOC: ER 11:29
DX: M79.604 Pain in right leg (principal); R79.1 Abnormal coagulation profile; I11.0 Hypertensive heart disease with heart failure; I50.9 Heart failure, unspecified; I25.2 Old myocardial infarction; I48.91 Unspecified atrial fibrillation; J44.9 Chronic obstructive pulmonary disease, unspecified; Z86.73 Personal history of transient ischemic attack (TIA), and cerebral infarction without residual deficits; Z98.61 Coronary angioplasty status; Z90.89 Acquired absence of other organs
CPT/HCPCS: 36415; 80053; 85025; 85610; 85730; 93005; 93971; 99285; J3430

== ENCOUNTER → 2018-04-26 | Outpatient (CLI) | payer MEDICAID ==
[~2018-04-26] MED LIST changes: +AMIO200T33 PO; +APIX5TAB OR; +CITA10TA59 PO; +FURO20TA3 PO; -METO25TA5 PO; +METO25TA62 PO; +POTA1TAB61 PO; +ROSU10TA16 PO; -SIMV-13 PO; -SPIR25TA89 PO; -WARF6TAB20 PO
== END | disposition home or self-care (01) ==
LOC: Rad HDHVI 09:43
PROVIDERS: ATTEND Internal Medicine Cardiovascular Disease
DX: I11.0 Hypertensive heart disease with heart failure (principal); I50.23 Acute on chronic systolic (congestive) heart failure; J44.9 Chronic obstructive pulmonary disease, unspecified; I42.0 Dilated cardiomyopathy
CPT/HCPCS: 93306

== ENCOUNTER → 2018-06-28 | Outpatient (CLI) | payer MEDICAID ==
[~2018-06-28] MED LIST changes: +LOSA-46 PO; -LOSA50TA6 PO
== END | disposition home or self-care (01) ==
LOC: Rad HDHVI 08:54
PROVIDERS: ATTEND Internal Medicine Cardiovascular Disease
DX: I42.0 Dilated cardiomyopathy (principal); I11.0 Hypertensive heart disease with heart failure; I50.23 Acute on chronic systolic (congestive) heart failure; J44.9 Chronic obstructive pulmonary disease, unspecified
CPT/HCPCS: 93306

== ENCOUNTER 2020-09-04 12:45 | Inpatient (IN) | payer MEDICAID ==
[~2020-09-04] VITALS: Ht 162.6 cm; Wt 86.2 kg
[~2020-09-04 12:45] MED LIST changes: +ASPI-543 PO; -ASPI81TA27 PO; -LOSA-46 PO; +LOSA-69 PO; -METO25TA62 PO; +METO25TA93 PO
[2020-09-04 14:32] LABS: Basophils # (auto) 0 10 ^3/uL (0-0.2); Basophils % (auto) 0.4 % (0.0-2.0); Eosinophils # (auto) 0 10 ^3/uL (0-0.8); Eosinophils % (auto) 0.5 % (0.0-7.0); Hematocrit 43.9 % (41.0-53.0); Hemoglobin 14.9 g/dL (13.5-17.5); Lymphocytes # (auto) 1.3 10 ^3/uL (0.4-5.4); Mean Corpuscular Volume 91.2 fL (80.0-100.0); Monocytes # (auto) 0.4 10 ^3/uL (0-1.3); Neutrophils # (auto) 5.7 10 ^3/uL (1.6-8.6); Neutrophils % (auto) 77.1 % (37.0-80.0); Nucleated Red Blood Cells % 0.1 %; Platelet Count (auto) 182 10^3/uL (140-450); Red Blood Cells 4.81 10^6/uL (4.5-5.90); Red Cell Distribution Width 13.5 % (11.8-14.3); White Blood Cell 7.5 10^3/uL (4.4-10.8)
[2020-09-04 14:47] LABS: INR 1.06 (0.9-1.15); Partial Thromboplastin Time 26.8 sec (23.0-31.2)
[2020-09-04 14:53] LABS: Anion Gap 1 (5-15); Blood Urea Nitrogen 17 mg/dL (7-18); Calcium 8.6 mg/dL (8.5-10.1); Carbon Dioxide 30 mmol/L (21-32); Chloride 106 mmol/L (98-107); Glucose 152 mg/dL (74-106); Magnesium 2.2 mg/dL (1.6-2.6); Sodium 137 mmol/L (136-145)
[2020-09-04 15:00] LABS: Alanine Aminotransferase 26 U/L (16-61); Alkaline Phosphatase 93 U/L (45-117); Aspartate Aminotransferase 17 U/L (15-37); BUN/Creatinine Ratio 16.7; Bilirubin, Total 0.4 mg/dL (0.2-1.0); GFR African American 96 mL/min; GFR Non-African American 79 mL/min; Total Protein 7.9 g/dL (6.4-8.2)
[2020-09-04] MEDS ORDERED: METOPROLOL TARTRATE 1MG/1ML-5ML VIAL IV PRN (19:30)
[2020-09-04] MEDS ORDERED: HYDROcodone-ACET 5/325MG TAB PO PRN (19:30)
[2020-09-04] MEDS ORDERED: MORPHINE SULF INJ 2 MG/ML SYRINGE 1ML IV PRN (19:30)
[2020-09-04] MEDS ORDERED: AMIODARONE HCL 200 MG TAB PO SCH (22:00)
[2020-09-04] MEDS ORDERED: ATORVASTATIN 20 MG TAB PO SCH (22:00)
[2020-09-04] MEDS: METOPROLOL TARTRATE 50 MG TAB PO SCH (22:00)
[2020-09-04] MEDS: APIXABAN 5 MG TAB PO SCH (22:00)
[2020-09-05] MEDS: APIXABAN 5 MG TAB PO SCH (08:59)
[2020-09-05] MEDS: METOPROLOL TARTRATE 50 MG TAB PO SCH (09:00)
[2020-09-05] MEDS ORDERED: CITALOPRAM HYDROBR 20 MG TAB PO SCH (10:00)
[2020-09-05] MEDS ORDERED: FUROSEMIDE 20 MG TAB PO SCH (10:00)
[2020-09-05] MEDS ORDERED: POTASSIUM CHL 10 Meq TABLET PO SCH (10:00)
[2020-09-05] MEDS ORDERED: ASPirin-EC 81 mg tab PO SCH (10:00)
[2020-09-05 12:08] VITALS: BP 134/90
[2020-09-05] MEDS ORDERED: METH5T PO (14:09)
[2020-09-05] MEDS ORDERED: NITR0.4S29 SL (14:09)
[2020-09-05] MEDS ORDERED: CITA-77 PO (14:09)
[2020-09-05] MEDS ORDERED: TRAZ50TA2 PO (14:09)
[2020-09-05] MEDS ORDERED: PANT40TA2 PO (14:09)
[2020-09-05] MEDS ORDERED: CARV6.25 PO (14:27)
== END 2020-09-05 15:15 | disposition home health service (06) | DRG 206 ==
LOC: ER 12:45 → EDBD 12:45 → TELE 12:46
PROVIDERS: ADMIT Internal Medicine; ATTEND Internal Medicine
PROC: 4B02XTZ Measurement of Cardiac Defibrillator, External Approach (ICD-10-PCS; principal; 2020-09-04)
DX: T82.118A Breakdown (mechanical) of other cardiac electronic device, initial encounter (principal); I11.0 Hypertensive heart disease with heart failure; I50.9 Heart failure, unspecified; I47.1 Supraventricular tachycardia; E78.5 Hyperlipidemia, unspecified; I48.91 Unspecified atrial fibrillation; I25.110 Atherosclerotic heart disease of native coronary artery with unstable angina pectoris; I25.5 Ischemic cardiomyopathy; Z20.822 Contact with and (suspected) exposure to COVID-19; Y83.8 Other surgical procedures as the cause of abnormal reaction of the patient, or of later complication, without mention of misadventure at the time of the procedure; Z95.810 Presence of automatic (implantable) cardiac defibrillator; Y92.89 Other specified places as the place of occurrence of the external cause; I25.2 Old myocardial infarction; Z79.01 Long term (current) use of anticoagulants; Z82.3 Family history of stroke; Z82.49 Family history of ischemic heart disease and other diseases of the circulatory system; Z83.3 Family history of diabetes mellitus; Z88.8 Allergy status to other drugs, medicaments and biological substances
CPT/HCPCS: 36415; 71045; 80053; 83735; 83880; 84484; 85025; 85610; 85730; 87426; 93005; 93306; G0378

== ENCOUNTER 2020-09-13 14:20 | Inpatient (IN) | payer MEDICAID ==
[~2020-09-13] VITALS: Ht 162.6 cm; Wt 86.2 kg
[~2020-09-13 14:20] MED LIST changes: -AMIO200T33 PO; +CARV6.25 PO; +CITA-77 PO; -CITA10TA59 PO; +METH5T PO; +NITR0.4S29 SL; +PANT40TA2 PO; +TRAZ50TA2 PO
[2020-09-13] MEDS ORDERED: SODIUM CHLORIDE 0.9% 1,000 ML IV ONE (14:45)
[2020-09-13] MEDS ORDERED: AMIODARONE HCL 150 MG in D5W 5% 100 ML IV ONE (14:45)
[2020-09-13] MEDS ORDERED: AMIODARONE HCL 200 MG TAB PO ONE (14:45)
[2020-09-13] MEDS ORDERED: DIGOXIN (250MCG/ML) 2 ML AMPULE IV ONE (14:45)
[2020-09-13 15:13] LABS: Basophils # (auto) 0 10 ^3/uL (0-0.2); Basophils % (auto) 0.7 % (0.0-2.0); Eosinophils # (auto) 0 10 ^3/uL (0-0.8); Hematocrit 40.2 % (41.0-53.0); Hemoglobin 13.8 g/dL (13.5-17.5); Lymphocytes # (auto) 0.7 10 ^3/uL (0.4-5.4); Lymphocytes % (auto) 17.9 % (10.0-50.0); Mean Corpuscular Hemoglobin 31.1 pg (28.0-32.0); Mean Corpuscular Hgb Conc. 34.2 g/dL (32.0-36.0); Monocytes # (auto) 0.5 10 ^3/uL (0-1.3); Monocytes % (auto) 13.3 % (0.0-12.0); Neutrophils # (auto) 2.5 10 ^3/uL (1.6-8.6); Neutrophils % (auto) 68.1 % (37.0-80.0); Platelet Count (auto) 90 10^3/uL (140-450); Red Blood Cells 4.42 10^6/uL (4.5-5.90); Red Cell Distribution Width 13.6 % (11.8-14.3); White Blood Cell 3.7 10^3/uL (4.4-10.8)
[2020-09-13] MEDS ORDERED: AMIODARONE HCL (50 MG/ ML) 3 ML VIAL IV ONE (15:31)
[2020-09-13 15:39] LABS: Albumin 3.4 g/dL (3.4-5.0); Calcium 7.4 mg/dL (8.5-10.1); Magnesium 2.3 mg/dL (1.6-2.6); Potassium 3.8 mmol/L (3.5-5.1)
[2020-09-13 15:46] LABS: BUN/Creatinine Ratio 17.1; Bilirubin, Total 0.4 mg/dL (0.2-1.0); Total Protein 7.2 g/dL (6.4-8.2)
[2020-09-13] MEDS ORDERED: AMIODARONE 450mg/250ml AE 250 ML IV ONE (15:52)
[2020-09-13] MEDS: AMIODARONE 450mg/250ml AE 250 ML IV SCH (15:55)
[2020-09-13] MEDS ORDERED: AMIODARONE 450mg/250ml AE 250 ML IV SCH (16:00)
[2020-09-13] MEDS ORDERED: METOPROLOL SUCCINATE XL 50 MG TAB PO ONE (16:00)
[2020-09-13] MEDS: MAGNESIUM SULFATE 1GM/100ML 100 ML IV SCH ×2 (16:01→17:01)
[2020-09-13] MEDS ORDERED: HYDROcodone-ACET 5/325MG TAB PO PRN (16:30)
[2020-09-13] MEDS ORDERED: MORPHINE SULF INJ 2 MG/ML SYRINGE 1ML IV PRN ×2 (16:30)
[2020-09-13] MEDS ORDERED: NITROGLYCERIN 0.4 MG SL TAB SL PRN (16:30)
[2020-09-13] MEDS ORDERED: traZODone HCL 50 MG TAB PO PRN (16:30)
[2020-09-13] MEDS ORDERED: ACETAMINOPHEN 325 MG TAB PO PRN (16:30)
[2020-09-13] MEDS ORDERED: ONDANSETRON HCL 4 MG/2 ML VIAL IV PRN (16:30)
[2020-09-13] MEDS ORDERED: ALUM & MAG HYDROX-SIMETH LIQ(MAALOX) 30 ML PO PRN (16:30)
[2020-09-13 18:13] LABS: Free T3 2.15 pg/mL (2.3-4.2); Free T4 (Free Thyroxine) 1.04 ng/dL (0.89-1.76)
[2020-09-13] MEDS: LORazepam 0.5 MG TAB PO SCH (22:34)
[2020-09-14 05:49] LABS: Basophils # (auto) 0 10 ^3/uL (0-0.2); Basophils % (auto) 0.2 % (0.0-2.0); Eosinophils # (auto) 0 10 ^3/uL (0-0.8); Hematocrit 40.1 % (41.0-53.0); Hemoglobin 13.9 g/dL (13.5-17.5); Lymphocytes # (auto) 1.1 10 ^3/uL (0.4-5.4); Lymphocytes % (auto) 26.6 % (10.0-50.0); Mean Corpuscular Hemoglobin 31.5 pg (28.0-32.0); Mean Corpuscular Hgb Conc. 34.6 g/dL (32.0-36.0); Mean Corpuscular Volume 91.1 fL (80.0-100.0); Monocytes # (auto) 0.5 10 ^3/uL (0-1.3); Neutrophils # (auto) 2.4 10 ^3/uL (1.6-8.6); Neutrophils % (auto) 60.2 % (37.0-80.0); Nucleated Red Blood Cells % 0.2 %; Platelet Count (auto) 83 10^3/uL (140-450); Red Cell Distribution Width 13.7 % (11.8-14.3)
[2020-09-14 06:05] LABS: Calcium 7.4 mg/dL (8.5-10.1); Potassium 3.8 mmol/L (3.5-5.1)
[2020-09-14 06:08] LABS: BUN/Creatinine Ratio 24.4
[2020-09-14 06:53] LABS: INR 1.07 (0.9-1.15); Partial Thromboplastin Time 31.7 sec (23.0-31.2)
[2020-09-14] MEDS: CITALOPRAM HYDROBR 20 MG TAB PO SCH (07:42)
[2020-09-14] MEDS: methIMAzole 5 MG TAB PO SCH (07:42)
[2020-09-14] MEDS: PANTOPRAZOLE 40 MG TAB PO SCH (07:42)
[2020-09-14] MEDS: ASPirin 81 mg TAB PO SCH (07:42)
[2020-09-14] MEDS ORDERED: ENOXAPARIN SOD 40 MG/0.4 ML SYRINGE SC SCH (10:00)
[2020-09-14] MEDS ORDERED: REMDESIVIR PER PHARMACY 0 ML IV SCH (11:30)
[2020-09-14] MEDS: DexAMETHasone SOD PHOS 10MG/1ML VIAL INJ IV SCH (11:34)
[2020-09-14] MEDS: AMIODARONE 450mg/250ml AE 250 ML IV SCH (13:00)
[2020-09-14] MEDS ORDERED: REMDESIVIR 200 MG in NS 210ml LOADING DOSE ADULT IV ONE (15:00)
[2020-09-14] MEDS: LORazepam 0.5 MG TAB PO SCH (21:34)
[2020-09-14] MEDS: AMIODARONE HCL 200 MG TAB PO SCH (21:34)
[2020-09-14] MEDS: FAMOTIDINE 20 MG TAB PO SCH (21:35)
[2020-09-14] MEDS: ENOXAPARIN SOD 40 MG/0.4 ML SYRINGE SC SCH (22:00)
[2020-09-15 07:22] LABS: Calcium 7.8 mg/dL (8.5-10.1); Potassium 4.3 mmol/L (3.5-5.1)
[2020-09-15 07:27] LABS: BUN/Creatinine Ratio 16.3; Bilirubin, Total 0.4 mg/dL (0.2-1.0)
[2020-09-15] MEDS: DexAMETHasone SOD PHOS 10MG/1ML VIAL INJ IV SCH (09:58)
[2020-09-15] MEDS: ASPirin 81 mg TAB PO SCH (09:59)
[2020-09-15] MEDS: FAMOTIDINE 20 MG TAB PO SCH (09:59)
[2020-09-15] MEDS: CITALOPRAM HYDROBR 20 MG TAB PO SCH (09:59)
[2020-09-15] MEDS: ENOXAPARIN SOD 40 MG/0.4 ML SYRINGE SC SCH (09:59)
[2020-09-15] MEDS: AMIODARONE HCL 200 MG TAB PO SCH (09:59)
[2020-09-15] MEDS: PANTOPRAZOLE 40 MG TAB PO SCH (09:59)
[2020-09-15] MEDS: methIMAzole 5 MG TAB PO SCH (09:59)
[2020-09-15] MEDS ORDERED: AMIO200T4 PO (11:42)
[2020-09-15] MEDS ORDERED: REMDESIVIR 100mg 100 MG in SODIUM CHL 0.9% 230 ML IV SCH (15:00)
[2020-09-15 15:23] VITALS: BP 119/71
== END 2020-09-15 15:26 | disposition home or self-care (01) | DRG 206 ==
LOC: ER 14:20 → EDBD 14:20 → OVERFLOW 14:21
PROVIDERS: ADMIT Hospitalist; ATTEND Hospitalist
PROC: XW033E5 Introduction of Remdesivir Anti-infective into Peripheral Vein, Percutaneous Approach, New Technology Group 5 (ICD-10-PCS; principal; 2020-09-14)
DX: T82.118A Breakdown (mechanical) of other cardiac electronic device, initial encounter (principal); I47.1 Supraventricular tachycardia; I48.20 Chronic atrial fibrillation, unspecified; E78.5 Hyperlipidemia, unspecified; I11.0 Hypertensive heart disease with heart failure; I25.10 Atherosclerotic heart disease of native coronary artery without angina pectoris; I42.9 Cardiomyopathy, unspecified; I50.41 Acute combined systolic (congestive) and diastolic (congestive) heart failure; J96.01 Acute respiratory failure with hypoxia; J98.11 Atelectasis; U07.1 COVID-19; Y71.2 Prosthetic and other implants, materials and accessory cardiovascular devices associated with adverse incidents; Z82.3 Family history of stroke; Z82.49 Family history of ischemic heart disease and other diseases of the circulatory system; Z83.3 Family history of diabetes mellitus; Z82.0 Family history of epilepsy and other diseases of the nervous system; Z95.810 Presence of automatic (implantable) cardiac defibrillator; I95.9 Hypotension, unspecified; E07.9 Disorder of thyroid, unspecified; I25.2 Old myocardial infarction; Z88.8 Allergy status to other drugs, medicaments and biological substances
CPT/HCPCS: 36415; 71045; 80048; 80053; 82962; 83735; 83880; 84439; 84443; 84481; 84484; 85025; 85610; 85730; 87426; 93005; 96361; 96365; 96375; G0378; J1100; J7060

== ENCOUNTER 2020-09-20 10:38 | Inpatient (IN) | payer MEDICAID ==
[~2020-09-20] VITALS: Ht 165.1 cm; Wt 81.5 kg
[~2020-09-20 10:38] MED LIST changes: +AMIO200T4 PO
[2020-09-20 11:29] LABS: Basophils # (auto) 0 10 ^3/uL (0-0.2); Basophils % (auto) 0.3 % (0.0-2.0); Eosinophils # (auto) 0 10 ^3/uL (0-0.8); Hematocrit 45.6 % (41.0-53.0); Hemoglobin 15.8 g/dL (13.5-17.5); Lymphocytes # (auto) 0.7 10 ^3/uL (0.4-5.4); Lymphocytes % (auto) 6.5 % (10.0-50.0); Mean Corpuscular Hemoglobin 31.4 pg (28.0-32.0); Mean Corpuscular Hgb Conc. 34.7 g/dL (32.0-36.0); Mean Corpuscular Volume 90.5 fL (80.0-100.0); Monocytes # (auto) 0.5 10 ^3/uL (0-1.3); Monocytes % (auto) 5.4 % (0.0-12.0); Neutrophils # (auto) 8.9 10 ^3/uL (1.6-8.6); Neutrophils % (auto) 87.8 % (37.0-80.0); Nucleated Red Blood Cells % 0.3 %; Platelet Count (auto) 252 10^3/uL (140-450); Red Blood Cells 5.04 10^6/uL (4.5-5.90); Red Cell Distribution Width 13.5 % (11.8-14.3); White Blood Cell 10.1 10^3/uL (4.4-10.8)
[2020-09-20 11:44] LABS: Calcium 8.4 mg/dL (8.5-10.1); Potassium 3.9 mmol/L (3.5-5.1)
[2020-09-20 11:50] LABS: BUN/Creatinine Ratio 21.4; Bilirubin, Total 0.9 mg/dL (0.2-1.0); Total Protein 8.2 g/dL (6.4-8.2)
[2020-09-20] MEDS ORDERED: cefTRIAXone 1GM/50ML D5W 50 ML IV ONE (12:15)
[2020-09-20] MEDS ORDERED: AZITHROMYCIN 500MG/ 250ML 250 ML IV ONE (12:15)
[2020-09-20] MEDS ORDERED: DexAMETHasone SOD PHOS 10MG/1ML VIAL INJ IV ONE (12:15)
[2020-09-20 12:51] LABS: CRP High Sensitivity 15.9 mg/dL (< 0.3)
[2020-09-20] MEDS ORDERED: REMDESIVIR PER PHARMACY 0 ML IV SCH (14:45)
[2020-09-20] MEDS ORDERED: ACETAMINOPHEN 500 MG TAB PO PRN (14:45)
[2020-09-20] MEDS ORDERED: ASPI-498 PO (15:59)
[2020-09-20 16:29] LABS: Urine Bacteria NONE SEEN /hpf (None Seen); Urine Blood Negative /uL (Negative); Urine Specific Gravity 1.036 (1.001-1.035); Urine WBC 2 /hpf (0 - 3)
[2020-09-20] MEDS ORDERED: REMDESIVIR 200 MG in NS 210ml LOADING DOSE ADULT IV ONE (17:00)
[2020-09-20] MEDS ORDERED: DOXYCYCLINE 100 MG TAB/CAP PO SCH (22:00)
[2020-09-20] MEDS: SODIUM CHLORIDE 0.9% 1,000 ML IV SCH (22:15)
[2020-09-20] MEDS: ALBUTEROL SULF HFA 90MCG INH 200DOSE IN SCH (22:30)
[2020-09-21] MEDS ORDERED: ALBUTEROL SULF HFA 90MCG INH 200DOSE IN SCH ×3 (06:00)
[2020-09-21] MEDS: ALBUTEROL SULF HFA 90MCG INH 200DOSE IN SCH ×3 (06:00→18:57)
[2020-09-21 06:04] LABS: Basophils # (auto) 0 10 ^3/uL (0-0.2); Basophils % (auto) 0.2 % (0.0-2.0); Eosinophils # (auto) 0 10 ^3/uL (0-0.8); Hematocrit 41.6 % (41.0-53.0); Hemoglobin 14.5 g/dL (13.5-17.5); Lymphocytes # (auto) 0.6 10 ^3/uL (0.4-5.4); Lymphocytes % (auto) 8.2 % (10.0-50.0); Mean Corpuscular Hemoglobin 31.7 pg (28.0-32.0); Mean Corpuscular Volume 90.6 fL (80.0-100.0); Monocytes # (auto) 0.5 10 ^3/uL (0-1.3); Monocytes % (auto) 6.7 % (0.0-12.0); Neutrophils # (auto) 5.8 10 ^3/uL (1.6-8.6); Neutrophils % (auto) 84.9 % (37.0-80.0); Platelet Count (auto) 256 10^3/uL (140-450); Red Blood Cells 4.59 10^6/uL (4.5-5.90); Red Cell Distribution Width 13.5 % (11.8-14.3); White Blood Cell 6.9 10^3/uL (4.4-10.8)
[2020-09-21 06:20] LABS: Albumin 2.5 g/dL (3.4-5.0); Potassium 4.9 mmol/L (3.5-5.1)
[2020-09-21 06:25] LABS: BUN/Creatinine Ratio 23.8; Bilirubin, Total 0.6 mg/dL (0.2-1.0); Total Protein 7.2 g/dL (6.4-8.2)
[2020-09-21] MEDS: DexAMETHasone SOD PHOS 10MG/1ML VIAL INJ IV SCH (10:48)
[2020-09-21] MEDS: ASCORBIC ACID 1,000 MG TAB PO SCH (10:49)
[2020-09-21] MEDS: CHOLECALCIFEROL (VITD3) 2,000 UNIT CAP/TAB PO SCH (10:49)
[2020-09-21] MEDS: AZITHROMYCIN 500MG/ 250ML 250 ML IV SCH (10:50)
[2020-09-21] MEDS: ZINC SULFATE 220mg CAP or TAB PO SCH (10:50)
[2020-09-21] MEDS: SODIUM CHLORIDE 0.9% 1,000 ML IV SCH (11:11)
[2020-09-21] MEDS: REMDESIVIR 100mg 100 MG in SODIUM CHL 0.9% 230 ML IV SCH (15:20)
[2020-09-21] MEDS: AMIODARONE HCL 200 MG TAB PO SCH (22:04)
[2020-09-21] MEDS: traZODone HCL 50 MG TAB PO SCH (22:05)
[2020-09-21] MEDS: APIXABAN 5 MG TAB PO SCH (22:07)
[2020-09-21] MEDS: ATORVASTATIN 20 MG TAB PO SCH (22:07)
[2020-09-21] MEDS ORDERED: IOHEXOL 350 MG/ML 100ML IJ ONE (23:48)
[2020-09-22 05:12] LABS: Basophils # (auto) 0 10 ^3/uL (0-0.2); Basophils % (auto) 0.2 % (0.0-2.0); Eosinophils # (auto) 0 10 ^3/uL (0-0.8); Hematocrit 41.6 % (41.0-53.0); Hemoglobin 14.2 g/dL (13.5-17.5); Lymphocytes # (auto) 0.6 10 ^3/uL (0.4-5.4); Lymphocytes % (auto) 4.5 % (10.0-50.0); Mean Corpuscular Hemoglobin 30.9 pg (28.0-32.0); Mean Corpuscular Hgb Conc. 34.1 g/dL (32.0-36.0); Mean Corpuscular Volume 90.6 fL (80.0-100.0); Monocytes # (auto) 0.9 10 ^3/uL (0-1.3); Monocytes % (auto) 6.4 % (0.0-12.0); Neutrophils % (auto) 88.9 % (37.0-80.0); Platelet Count (auto) 281 10^3/uL (140-450); Red Blood Cells 4.59 10^6/uL (4.5-5.90); Red Cell Distribution Width 13.5 % (11.8-14.3); White Blood Cell 13.4 10^3/uL (4.4-10.8)
[2020-09-22 05:24] LABS: Potassium 4.2 mmol/L (3.5-5.1)
[2020-09-22 05:37] LABS: Albumin 2.6 g/dL (3.4-5.0); BUN/Creatinine Ratio 25.9; Bilirubin, Total 0.5 mg/dL (0.2-1.0); Calcium 8.3 mg/dL (8.5-10.1); Total Protein 6.9 g/dL (6.4-8.2)
[2020-09-22] MEDS: ALBUTEROL SULF HFA 90MCG INH 200DOSE IN SCH ×2 (06:00→22:03)
[2020-09-22] MEDS: DexAMETHasone SOD PHOS 10MG/1ML VIAL INJ IV SCH (10:16)
[2020-09-22] MEDS: AMIODARONE HCL 200 MG TAB PO SCH ×2 (10:17→23:04)
[2020-09-22] MEDS: METOPROLOL SUCCINATE XL 50 MG TAB PO SCH (10:17)
[2020-09-22] MEDS: ASCORBIC ACID 1,000 MG TAB PO SCH (10:17)
[2020-09-22] MEDS: CHOLECALCIFEROL (VITD3) 2,000 UNIT CAP/TAB PO SCH (10:17)
[2020-09-22] MEDS: AZITHROMYCIN 500MG/ 250ML 250 ML IV SCH (10:18)
[2020-09-22] MEDS: ZINC SULFATE 220mg CAP or TAB PO SCH (10:18)
[2020-09-22] MEDS: APIXABAN 5 MG TAB PO SCH ×2 (10:18→23:05)
[2020-09-22] MEDS: methIMAzole 5 MG TAB PO SCH (10:19)
[2020-09-22] MEDS: REMDESIVIR 100mg 100 MG in SODIUM CHL 0.9% 230 ML IV SCH (15:31)
[2020-09-22] MEDS ORDERED: IOHEXOL 350 MG/ML 100ML IJ ONE (16:53)
[2020-09-22] MEDS: ATORVASTATIN 20 MG TAB PO SCH (23:04)
[2020-09-22] MEDS: traZODone HCL 50 MG TAB PO SCH (23:05)
[2020-09-23 05:57] LABS: Basophils # (auto) 0 10 ^3/uL (0-0.2); Eosinophils # (auto) 0 10 ^3/uL (0-0.8); Hematocrit 40.1 % (41.0-53.0); Hemoglobin 13.8 g/dL (13.5-17.5); Lymphocytes # (auto) 0.6 10 ^3/uL (0.4-5.4); Lymphocytes % (auto) 5.1 % (10.0-50.0); Mean Corpuscular Hemoglobin 30.9 pg (28.0-32.0); Mean Corpuscular Hgb Conc. 34.4 g/dL (32.0-36.0); Monocytes # (auto) 0.9 10 ^3/uL (0-1.3); Monocytes % (auto) 8.5 % (0.0-12.0); Neutrophils # (auto) 9.7 10 ^3/uL (1.6-8.6); Neutrophils % (auto) 86.4 % (37.0-80.0); Platelet Count (auto) 290 10^3/uL (140-450); Red Blood Cells 4.46 10^6/uL (4.5-5.90); Red Cell Distribution Width 13.3 % (11.8-14.3); White Blood Cell 11.2 10^3/uL (4.4-10.8)
[2020-09-23] MEDS: ALBUTEROL SULF HFA 90MCG INH 200DOSE IN SCH ×3 (06:00→18:43)
[2020-09-23 06:08] LABS: Albumin 2.4 g/dL (3.4-5.0); Calcium 7.9 mg/dL (8.5-10.1)
[2020-09-23 06:12] LABS: Bilirubin, Total 0.6 mg/dL (0.2-1.0); Total Protein 6.3 g/dL (6.4-8.2)
[2020-09-23] MEDS: ZINC SULFATE 220mg CAP or TAB PO SCH (09:59)
[2020-09-23] MEDS: AZITHROMYCIN 500MG/ 250ML 250 ML IV SCH (09:59)
[2020-09-23] MEDS: DexAMETHasone SOD PHOS 10MG/1ML VIAL INJ IV SCH (09:59)
[2020-09-23] MEDS: APIXABAN 5 MG TAB PO SCH ×2 (10:00→23:15)
[2020-09-23] MEDS: AMIODARONE HCL 200 MG TAB PO SCH ×2 (10:00→23:15)
[2020-09-23] MEDS: METOPROLOL SUCCINATE XL 50 MG TAB PO SCH (10:00)
[2020-09-23] MEDS: FUROSEMIDE 20 MG TAB PO SCH (10:03)
[2020-09-23] MEDS: methIMAzole 5 MG TAB PO SCH (10:03)
[2020-09-23] MEDS: ASCORBIC ACID 1,000 MG TAB PO SCH (10:03)
[2020-09-23] MEDS: CHOLECALCIFEROL (VITD3) 2,000 UNIT CAP/TAB PO SCH (10:04)
[2020-09-23] MEDS: REMDESIVIR 100mg 100 MG in SODIUM CHL 0.9% 230 ML IV SCH (14:46)
[2020-09-23] MEDS ORDERED: ACETAMINOPHEN 325 MG TAB PO PRN (21:00)
[2020-09-23] MEDS: traZODone HCL 50 MG TAB PO SCH (23:15)
[2020-09-23] MEDS: ATORVASTATIN 20 MG TAB PO SCH (23:15)
[2020-09-24 06:36] LABS: Albumin 2.8 g/dL (3.4-5.0); Calcium 8.5 mg/dL (8.5-10.1); Potassium 3.8 mmol/L (3.5-5.1)
[2020-09-24 06:41] LABS: BUN/Creatinine Ratio 24.5; Bilirubin, Total 0.8 mg/dL (0.2-1.0); Total Protein 7.3 g/dL (6.4-8.2)
[2020-09-24 09:25] VITALS: BP 118/75
[2020-09-24] MEDS: AZITHROMYCIN 500MG/ 250ML 250 ML IV SCH (11:30)
[2020-09-24] MEDS: DexAMETHasone SOD PHOS 10MG/1ML VIAL INJ IV SCH (11:30)
[2020-09-24] MEDS: methIMAzole 5 MG TAB PO SCH (11:59)
[2020-09-24] MEDS: ASCORBIC ACID 1,000 MG TAB PO SCH (12:00)
[2020-09-24] MEDS: METOPROLOL SUCCINATE XL 50 MG TAB PO SCH (12:05)
[2020-09-24] MEDS: ZINC SULFATE 220mg CAP or TAB PO SCH (12:06)
[2020-09-24] MEDS: APIXABAN 5 MG TAB PO SCH ×2 (12:06→21:33)
[2020-09-24] MEDS: FUROSEMIDE 20 MG TAB PO SCH (12:07)
[2020-09-24] MEDS: CHOLECALCIFEROL (VITD3) 2,000 UNIT CAP/TAB PO SCH (12:08)
[2020-09-24 16:00] VITALS: BP 112/79
[2020-09-24] MEDS: REMDESIVIR 100mg 100 MG in SODIUM CHL 0.9% 230 ML IV SCH (16:57)
[2020-09-24] MEDS: AMIODARONE HCL 200 MG TAB PO SCH ×3 (16:57→21:44)
[2020-09-24] MEDS: ALBUTEROL SULF HFA 90MCG INH 200DOSE IN PRN (20:05)
[2020-09-24] MEDS: ATORVASTATIN 20 MG TAB PO SCH (21:33)
[2020-09-24] MEDS: traZODone HCL 50 MG TAB PO SCH (21:33)
[2020-09-25] VITALS: BP 106/72
[2020-09-25 05:43] LABS: Basophils # (auto) 0 10 ^3/uL (0-0.2); Basophils % (auto) 0.1 % (0.0-2.0); Eosinophils # (auto) 0 10 ^3/uL (0-0.8); Hematocrit 46.4 % (41.0-53.0); Hemoglobin 16.1 g/dL (13.5-17.5); Lymphocytes % (auto) 8.3 % (10.0-50.0); Mean Corpuscular Hemoglobin 31.5 pg (28.0-32.0); Mean Corpuscular Hgb Conc. 34.6 g/dL (32.0-36.0); Monocytes # (auto) 0.8 10 ^3/uL (0-1.3); Monocytes % (auto) 6.8 % (0.0-12.0); Neutrophils # (auto) 10.4 10 ^3/uL (1.6-8.6); Neutrophils % (auto) 84.8 % (37.0-80.0); Nucleated Red Blood Cells % 0.1 %; Platelet Count (auto) 297 10^3/uL (140-450); Red Cell Distribution Width 13.5 % (11.8-14.3); White Blood Cell 12.3 10^3/uL (4.4-10.8)
[2020-09-25 06:01] LABS: Potassium 3.5 mmol/L (3.5-5.1)
[2020-09-25 06:11] LABS: Albumin 2.9 g/dL (3.4-5.0); BUN/Creatinine Ratio 25.4; Bilirubin, Total 0.9 mg/dL (0.2-1.0); Calcium 8.1 mg/dL (8.5-10.1); Total Protein 7.4 g/dL (6.4-8.2)
[2020-09-25 08:00] VITALS: BP 116/73
[2020-09-25] MEDS: AZITHROMYCIN 500MG/ 250ML 250 ML IV SCH (09:13)
[2020-09-25] MEDS: ZINC SULFATE 220mg CAP or TAB PO SCH (09:13)
[2020-09-25] MEDS: DexAMETHasone SOD PHOS 10MG/1ML VIAL INJ IV SCH (09:13)
[2020-09-25] MEDS: METOPROLOL SUCCINATE XL 50 MG TAB PO SCH (09:14)
[2020-09-25] MEDS: APIXABAN 5 MG TAB PO SCH ×2 (09:14→21:30)
[2020-09-25] MEDS: methIMAzole 5 MG TAB PO SCH (09:15)
[2020-09-25] MEDS: ASCORBIC ACID 1,000 MG TAB PO SCH (09:15)
[2020-09-25] MEDS: AMIODARONE HCL 200 MG TAB PO SCH ×2 (09:15→21:30)
[2020-09-25] MEDS: FUROSEMIDE 20 MG TAB PO SCH (09:15)
[2020-09-25] MEDS: CHOLECALCIFEROL (VITD3) 2,000 UNIT CAP/TAB PO SCH (09:16)
[2020-09-25 16:00] VITALS: BP 111/76
[2020-09-25] MEDS: ALBUTEROL SULF HFA 90MCG INH 200DOSE IN PRN (20:50)
[2020-09-25] MEDS: ATORVASTATIN 20 MG TAB PO SCH (21:30)
[2020-09-25] MEDS: traZODone HCL 50 MG TAB PO SCH (21:30)
[2020-09-26] VITALS: BP_SYST 101; BP_SYST 119; BP_DIAS 66; BP_DIAS 78
[2020-09-26 06:01] LABS: Hematocrit 46.8 % (41.0-53.0); Mean Corpuscular Hemoglobin 30.8 pg (28.0-32.0); Mean Corpuscular Hgb Conc. 34.2 g/dL (32.0-36.0); Mean Corpuscular Volume 89.9 fL (80.0-100.0); Platelet Count (auto) 329 10^3/uL (140-450); Red Blood Cells 5.21 10^6/uL (4.5-5.90); Red Cell Distribution Width 13.2 % (11.8-14.3)
[2020-09-26 06:24] LABS: Potassium 3.7 mmol/L (3.5-5.1)
[2020-09-26 06:27] LABS: Band Neutrophils % (manual) 0; Basophils % (manual) 0 (0.0-2.0); Blast Cells 0; Eosinophils % (manual) 0 (0-7); Metamyelocytes % 0; Myelocytes % 0; Promyelocytes % 0; Reactive Lymphocytes 0
[2020-09-26 06:38] LABS: BUN/Creatinine Ratio 30.4; CRP High Sensitivity 1.65 mg/dL (< 0.3); Calcium 8.3 mg/dL (8.5-10.1)
[2020-09-26 07:15] LABS: Lymphocytes % (manual) 4 (10.0-50.0); Monocytes % (manual) 7 (0-12)
[2020-09-26 08:00] VITALS: BP 112/65
[2020-09-26] MEDS: DexAMETHasone SOD PHOS 10MG/1ML VIAL INJ IV SCH (10:01)
[2020-09-26] MEDS: methIMAzole 5 MG TAB PO SCH (10:02)
[2020-09-26] MEDS: ZINC SULFATE 220mg CAP or TAB PO SCH (10:02)
[2020-09-26] MEDS: AMIODARONE HCL 200 MG TAB PO SCH ×2 (10:02→21:30)
[2020-09-26] MEDS: APIXABAN 5 MG TAB PO SCH ×2 (10:02→21:31)
[2020-09-26] MEDS: ASCORBIC ACID 1,000 MG TAB PO SCH (10:03)
[2020-09-26] MEDS: CHOLECALCIFEROL (VITD3) 2,000 UNIT CAP/TAB PO SCH (10:03)
[2020-09-26] MEDS: FUROSEMIDE 20 MG TAB PO SCH (10:04)
[2020-09-26] MEDS: METOPROLOL SUCCINATE XL 50 MG TAB PO SCH (10:04)
[2020-09-26 16:00] VITALS: BP 109/70
[2020-09-26] MEDS: ALBUTEROL SULF HFA 90MCG INH 200DOSE IN PRN (18:29)
[2020-09-26] MEDS: traZODone HCL 50 MG TAB PO SCH (21:30)
[2020-09-26] MEDS: DOCUSATE SOD 100 MG CAP PO SCH (21:30)
[2020-09-26] MEDS: ATORVASTATIN 20 MG TAB PO SCH (21:31)
[2020-09-27] VITALS: BP 111/76
[2020-09-27 06:30] LABS: Basophils # (auto) 0 10 ^3/uL (0-0.2); Basophils % (auto) 0.2 % (0.0-2.0); Eosinophils # (auto) 0 10 ^3/uL (0-0.8); Hematocrit 46.4 % (41.0-53.0); Hemoglobin 15.7 g/dL (13.5-17.5); Lymphocytes # (auto) 0.9 10 ^3/uL (0.4-5.4); Lymphocytes % (auto) 6.2 % (10.0-50.0); Mean Corpuscular Hemoglobin 30.3 pg (28.0-32.0); Mean Corpuscular Hgb Conc. 33.8 g/dL (32.0-36.0); Mean Corpuscular Volume 89.7 fL (80.0-100.0); Monocytes # (auto) 0.8 10 ^3/uL (0-1.3); Monocytes % (auto) 5.4 % (0.0-12.0); Neutrophils # (auto) 13.2 10 ^3/uL (1.6-8.6); Neutrophils % (auto) 88.2 % (37.0-80.0); Platelet Count (auto) 345 10^3/uL (140-450); Red Blood Cells 5.17 10^6/uL (4.5-5.90); Red Cell Distribution Width 13.3 % (11.8-14.3)
[2020-09-27 06:46] LABS: Calcium 8.2 mg/dL (8.5-10.1); Potassium 3.6 mmol/L (3.5-5.1)
[2020-09-27 06:49] LABS: BUN/Creatinine Ratio 36.5; CRP High Sensitivity 0.86 mg/dL (< 0.3)
[2020-09-27 08:00] VITALS: BP 107/69
[2020-09-27] MEDS: AMIODARONE HCL 200 MG TAB PO SCH ×2 (09:31→21:35)
[2020-09-27] MEDS: DOCUSATE SOD 100 MG CAP PO SCH ×2 (09:31→21:34)
[2020-09-27] MEDS: DexAMETHasone SOD PHOS 10MG/1ML VIAL INJ IV SCH (09:31)
[2020-09-27] MEDS: APIXABAN 5 MG TAB PO SCH ×2 (09:31→21:35)
[2020-09-27] MEDS: ASCORBIC ACID 1,000 MG TAB PO SCH (09:32)
[2020-09-27] MEDS: CHOLECALCIFEROL (VITD3) 2,000 UNIT CAP/TAB PO SCH (09:32)
[2020-09-27] MEDS: methIMAzole 5 MG TAB PO SCH (09:32)
[2020-09-27] MEDS: METOPROLOL SUCCINATE XL 50 MG TAB PO SCH (09:33)
[2020-09-27] MEDS: FUROSEMIDE 20 MG TAB PO SCH (09:33)
[2020-09-27] MEDS: ZINC SULFATE 220mg CAP or TAB PO SCH (09:34)
[2020-09-27 16:00] VITALS: BP 120/77
[2020-09-27] MEDS: traZODone HCL 50 MG TAB PO SCH (21:34)
[2020-09-27] MEDS: ATORVASTATIN 20 MG TAB PO SCH (21:36)
[2020-09-27] MEDS: ALBUTEROL SULF HFA 90MCG INH 200DOSE IN SCH (22:00)
[2020-09-28] VITALS: BP 106/74
[2020-09-28 06:09] LABS: Basophils # (auto) 0 10 ^3/uL (0-0.2); Basophils % (auto) 0.1 % (0.0-2.0); Eosinophils # (auto) 0 10 ^3/uL (0-0.8); Hematocrit 44.4 % (41.0-53.0); Hemoglobin 15.3 g/dL (13.5-17.5); Lymphocytes # (auto) 0.8 10 ^3/uL (0.4-5.4); Mean Corpuscular Hemoglobin 31.1 pg (28.0-32.0); Mean Corpuscular Hgb Conc. 34.5 g/dL (32.0-36.0); Monocytes # (auto) 1.1 10 ^3/uL (0-1.3); Monocytes % (auto) 7.8 % (0.0-12.0); Neutrophils # (auto) 11.9 10 ^3/uL (1.6-8.6); Neutrophils % (auto) 86.1 % (37.0-80.0); Platelet Count (auto) 316 10^3/uL (140-450); Red Blood Cells 4.94 10^6/uL (4.5-5.90); Red Cell Distribution Width 13.5 % (11.8-14.3); White Blood Cell 13.8 10^3/uL (4.4-10.8)
[2020-09-28] MEDS: ALBUTEROL SULF HFA 90MCG INH 200DOSE IN SCH ×2 (06:15→22:32)
[2020-09-28 06:27] LABS: BUN/Creatinine Ratio 39.8; CRP High Sensitivity 0.51 mg/dL (< 0.3); Calcium 8.1 mg/dL (8.5-10.1); Potassium 3.5 mmol/L (3.5-5.1)
[2020-09-28 07:47] VITALS: BP 111/79
[2020-09-28] MEDS: methIMAzole 5 MG TAB PO SCH (09:33)
[2020-09-28] MEDS: ZINC SULFATE 220mg CAP or TAB PO SCH (09:33)
[2020-09-28] MEDS: APIXABAN 5 MG TAB PO SCH ×2 (09:33→22:05)
[2020-09-28] MEDS: DOCUSATE SOD 100 MG CAP PO SCH ×2 (09:33→22:04)
[2020-09-28] MEDS: DexAMETHasone SOD PHOS 10MG/1ML VIAL INJ IV SCH (09:33)
[2020-09-28] MEDS: ASCORBIC ACID 1,000 MG TAB PO SCH (09:33)
[2020-09-28] MEDS: AMIODARONE HCL 200 MG TAB PO SCH ×2 (09:34→22:05)
[2020-09-28] MEDS: FUROSEMIDE 20 MG TAB PO SCH (09:37)
[2020-09-28] MEDS: METOPROLOL SUCCINATE XL 50 MG TAB PO SCH (09:38)
[2020-09-28] MEDS: CHOLECALCIFEROL (VITD3) 2,000 UNIT CAP/TAB PO SCH (09:38)
[2020-09-28 15:38] VITALS: BP 111/75
[2020-09-28] MEDS: traZODone HCL 50 MG TAB PO SCH (22:04)
[2020-09-28] MEDS: ATORVASTATIN 20 MG TAB PO SCH (22:05)
[2020-09-29] VITALS: BP 116/79
[2020-09-29 07:15] LABS: Basophils # (auto) 0 10 ^3/uL (0-0.2); Basophils % (auto) 0.2 % (0.0-2.0); Eosinophils # (auto) 0 10 ^3/uL (0-0.8); Hematocrit 44.8 % (41.0-53.0); Hemoglobin 15.7 g/dL (13.5-17.5); Lymphocytes # (auto) 0.7 10 ^3/uL (0.4-5.4); Lymphocytes % (auto) 5.3 % (10.0-50.0); Mean Corpuscular Hemoglobin 31.4 pg (28.0-32.0); Mean Corpuscular Volume 89.8 fL (80.0-100.0); Monocytes # (auto) 1.5 10 ^3/uL (0-1.3); Monocytes % (auto) 11.2 % (0.0-12.0); Neutrophils # (auto) 11.4 10 ^3/uL (1.6-8.6); Neutrophils % (auto) 83.3 % (37.0-80.0); Platelet Count (auto) 285 10^3/uL (140-450); Red Blood Cells 4.99 10^6/uL (4.5-5.90); Red Cell Distribution Width 13.2 % (11.8-14.3); White Blood Cell 13.7 10^3/uL (4.4-10.8)
[2020-09-29 07:42] LABS: BUN/Creatinine Ratio 31.7; CRP High Sensitivity 0.31 mg/dL (< 0.3); Calcium 8.5 mg/dL (8.5-10.1); Potassium 3.6 mmol/L (3.5-5.1)
[2020-09-29] MEDS: ALBUTEROL SULF HFA 90MCG INH 200DOSE IN SCH ×3 (07:55→20:17)
[2020-09-29 08:00] VITALS: BP 116/80
[2020-09-29] MEDS: DexAMETHasone SOD PHOS 10MG/1ML VIAL INJ IV SCH (09:37)
[2020-09-29] MEDS: ZINC SULFATE 220mg CAP or TAB PO SCH (09:38)
[2020-09-29] MEDS: DOCUSATE SOD 100 MG CAP PO SCH ×2 (09:38→22:03)
[2020-09-29] MEDS: APIXABAN 5 MG TAB PO SCH ×2 (09:38→22:04)
[2020-09-29] MEDS: AMIODARONE HCL 200 MG TAB PO SCH ×2 (09:39→22:03)
[2020-09-29] MEDS: CHOLECALCIFEROL (VITD3) 2,000 UNIT CAP/TAB PO SCH (09:40)
[2020-09-29] MEDS: ASCORBIC ACID 1,000 MG TAB PO SCH (09:40)
[2020-09-29] MEDS: methIMAzole 5 MG TAB PO SCH (09:40)
[2020-09-29] MEDS: METOPROLOL SUCCINATE XL 50 MG TAB PO SCH (09:41)
[2020-09-29] MEDS: FUROSEMIDE 20 MG TAB PO SCH (09:42)
[2020-09-29] MEDS ORDERED: DEXA6TAB6 PO (13:55)
[2020-09-29] MEDS ORDERED: ALBUAER3 IN (13:56)
[2020-09-29] MEDS: CITALOPRAM HYDROBR 20 MG TAB PO SCH (15:00)
[2020-09-29 15:27] VITALS: BP 117/73
[2020-09-29 15:52] VITALS: BP 121/79
[2020-09-29] MEDS: ATORVASTATIN 20 MG TAB PO SCH (22:04)
[2020-09-30] VITALS: BP 116/70
[2020-09-30 06:00] LABS: Basophils # (auto) 0 10 ^3/uL (0-0.2); Basophils % (auto) 0.1 % (0.0-2.0); Eosinophils # (auto) 0 10 ^3/uL (0-0.8); Hematocrit 43.4 % (41.0-53.0); Hemoglobin 14.8 g/dL (13.5-17.5); Lymphocytes # (auto) 0.8 10 ^3/uL (0.4-5.4); Lymphocytes % (auto) 6.5 % (10.0-50.0); Mean Corpuscular Hemoglobin 31.1 pg (28.0-32.0); Mean Corpuscular Hgb Conc. 34.1 g/dL (32.0-36.0); Mean Corpuscular Volume 91.1 fL (80.0-100.0); Monocytes # (auto) 1.3 10 ^3/uL (0-1.3); Monocytes % (auto) 10.4 % (0.0-12.0); Neutrophils # (auto) 10.3 10 ^3/uL (1.6-8.6); Platelet Count (auto) 267 10^3/uL (140-450); Red Blood Cells 4.77 10^6/uL (4.5-5.90); Red Cell Distribution Width 13.2 % (11.8-14.3); White Blood Cell 12.4 10^3/uL (4.4-10.8)
[2020-09-30] MEDS: ALBUTEROL SULF HFA 90MCG INH 200DOSE IN SCH ×2 (06:00→13:16)
[2020-09-30 06:03] LABS: BUN/Creatinine Ratio 36.2; CRP High Sensitivity 0.34 mg/dL (< 0.3)
[2020-09-30 08:00] VITALS: BP 109/62
[2020-09-30] MEDS: AMIODARONE HCL 200 MG TAB PO SCH (09:56)
[2020-09-30] MEDS: ZINC SULFATE 220mg CAP or TAB PO SCH (09:56)
[2020-09-30] MEDS: CITALOPRAM HYDROBR 20 MG TAB PO SCH (09:57)
[2020-09-30] MEDS: ASCORBIC ACID 1,000 MG TAB PO SCH (09:57)
[2020-09-30] MEDS: CHOLECALCIFEROL (VITD3) 2,000 UNIT CAP/TAB PO SCH (09:57)
[2020-09-30] MEDS: DOCUSATE SOD 100 MG CAP PO SCH (09:57)
[2020-09-30] MEDS: APIXABAN 5 MG TAB PO SCH (09:57)
[2020-09-30] MEDS: FUROSEMIDE 20 MG TAB PO SCH (09:57)
[2020-09-30] MEDS: DexAMETHasone SOD PHOS 10MG/1ML VIAL INJ IV SCH (09:58)
[2020-09-30] MEDS: METOPROLOL SUCCINATE XL 50 MG TAB PO SCH (09:59)
[2020-09-30] MEDS: methIMAzole 5 MG TAB PO SCH (10:00)
[2020-09-30] MEDS ORDERED: MIRT-68 PO (13:49)
[2020-09-30 15:49] VITALS: BP 114/75
== END 2020-09-30 17:00 | disposition home health service (06) | DRG 137 ==
LOC: ER 10:38 → EDUNIT# 10:38 → EDBD 10:38 → TELE 10:39 → TELE-WESTW 09-24 09:14
PROVIDERS: ADMIT Internal Medicine; ATTEND Internal Medicine
PROC: XW033E5 Introduction of Remdesivir Anti-infective into Peripheral Vein, Percutaneous Approach, New Technology Group 5 (ICD-10-PCS; principal; 2020-09-20)
PROC: 5A09357 Assistance with Respiratory Ventilation, Less than 24 Consecutive Hours, Continuous Positive Airway Pressure (ICD-10-PCS; 2020-09-25)
DX: U07.1 COVID-19 (principal); J12.82 Pneumonia due to coronavirus disease 2019; J96.01 Acute respiratory failure with hypoxia; I25.10 Atherosclerotic heart disease of native coronary artery without angina pectoris; E66.9 Obesity, unspecified; E78.5 Hyperlipidemia, unspecified; J98.11 Atelectasis; E05.90 Thyrotoxicosis, unspecified without thyrotoxic crisis or storm; I48.0 Paroxysmal atrial fibrillation; Z79.01 Long term (current) use of anticoagulants; Z82.0 Family history of epilepsy and other diseases of the nervous system; Z83.3 Family history of diabetes mellitus; Z95.810 Presence of automatic (implantable) cardiac defibrillator; Z68.30 Body mass index [BMI] 30.0-30.9, adult; Z82.49 Family history of ischemic heart disease and other diseases of the circulatory system; I50.9 Heart failure, unspecified; I11.0 Hypertensive heart disease with heart failure
CPT/HCPCS: 36415; 36600; 71045; 80048; 80053; 81001; 82728; 82805; 83615; 84484; 85007; 85025; 85027; 85379; 86141; 87426; 93005; 93970; 94640; 96365; 96366; 96368; 96375; 99291; G0378; J0696; J1100

== ENCOUNTER → 2020-10-30 | Outpatient (CLI) | payer MEDICAID ==
[~2020-10-30] MED LIST changes: +ALBUAER3 IN; -CITA-77 PO; +DEXA6TAB6 PO; -LORA-655 PO; -LOSA-69 PO; +MIRT-68 PO; -POTA1TAB61 PO
== END | disposition home or self-care (01) ==
LOC: Rad HDHVI 09:21
PROVIDERS: ATTEND Internal Medicine Cardiovascular Disease
DX: I42.0 Dilated cardiomyopathy (principal); Z95.810 Presence of automatic (implantable) cardiac defibrillator
CPT/HCPCS: 93306

== ENCOUNTER 2020-11-24 17:32 | Emergency (ER) | payer MEDICAID ==
[~2020-11-24] VITALS: Ht 160 cm; Wt 87.1 kg
[2020-11-24 19:11] LABS: Basophils # (auto) 0.1 10 ^3/uL (0-0.2); Basophils % (auto) 0.6 % (0.0-2.0); Eosinophils # (auto) 0 10 ^3/uL (0-0.8); Hematocrit 36.8 % (41.0-53.0); Hemoglobin 12.6 g/dL (13.5-17.5); Lymphocytes # (auto) 1.3 10 ^3/uL (0.4-5.4); Lymphocytes % (auto) 14.9 % (10.0-50.0); Mean Corpuscular Hemoglobin 32.2 pg (28.0-32.0); Mean Corpuscular Hgb Conc. 34.2 g/dL (32.0-36.0); Mean Corpuscular Volume 94.2 fL (80.0-100.0); Monocytes # (auto) 0.4 10 ^3/uL (0-1.3); Monocytes % (auto) 4.2 % (0.0-12.0); Neutrophils # (auto) 6.8 10 ^3/uL (1.6-8.6); Neutrophils % (auto) 80.3 % (37.0-80.0); Platelet Count (auto) 166 10^3/uL (140-450); Red Cell Distribution Width 16.3 % (11.8-14.3); White Blood Cell 8.5 10^3/uL (4.4-10.8)
[2020-11-24 19:26] LABS: Anion Gap 9 (5-15); Blood Urea Nitrogen 18 mg/dL (7-18); Calcium 8.7 mg/dL (8.5-10.1); Carbon Dioxide 24 mmol/L (21-32); Chloride 107 mmol/L (98-107); Glucose 91 mg/dL (74-106); Magnesium 2.6 mg/dL (1.6-2.6); Potassium 3.8 mmol/L (3.5-5.1); Sodium 140 mmol/L (136-145)
[2020-11-24 19:32] LABS: Alanine Aminotransferase 34 U/L (16-61); Alkaline Phosphatase 62 U/L (45-117); Aspartate Aminotransferase 24 U/L (15-37); BUN/Creatinine Ratio 17.8; Bilirubin, Total 0.6 mg/dL (0.2-1.0); GFR African American 97 mL/min; GFR Non-African American 80 mL/min; Total Protein 7.3 g/dL (6.4-8.2)
[2020-11-24 19:35] LABS: INR 1.08 (0.9-1.15); Partial Thromboplastin Time 27.6 sec (23.0-31.2)
[2020-11-24 20:02] LABS: Urine Bacteria NONE SEEN /hpf (None Seen); Urine Blood Negative /uL (Negative); Urine Specific Gravity 1.028 (1.001-1.035); Urine WBC 1 /hpf (0 - 3)
[2020-11-25 05:05] VITALS: BP 102/63
== END 2020-11-25 06:07 | disposition home or self-care (01) ==
LOC: ER 17:32 → EDBD 17:32 → ER 11-25 06:07
DX: I48.20 Chronic atrial fibrillation, unspecified (principal); E78.5 Hyperlipidemia, unspecified; I10 Essential (primary) hypertension; I25.2 Old myocardial infarction; Z20.822 Contact with and (suspected) exposure to COVID-19; Z88.6 Allergy status to analgesic agent
CPT/HCPCS: 36415; 70450; 71045; 80053; 81001; 83605; 83735; 83880; 84484; 85025; 85379; 85610; 85730; 87040; 87086; 87426; 93005

== ENCOUNTER → 2021-08-07 | Outpatient (CLI) | payer MEDICAID ==
[~2021-08-07] MED LIST changes: +CHOL20007 PO; +CITA-77 PO; +FAMO20TA10 PO
== END | disposition home or self-care (01) ==
LOC: Rad HDHVI 13:29
PROVIDERS: ATTEND Internal Medicine Cardiovascular Disease
DX: I51.7 Cardiomegaly (principal); R06.02 Shortness of breath; R07.89 Other chest pain; E78.5 Hyperlipidemia, unspecified; Z95.810 Presence of automatic (implantable) cardiac defibrillator
CPT/HCPCS: 71046; 93306

== ENCOUNTER 2021-08-14 06:49 | Day surgery (SDC) | payer MEDICAID ==
[2021-08-14] VITALS (7 sets, daily range): BP systolic 118–139; BP diastolic 80–92
[~2021-08-14] VITALS: Ht 160 cm; Wt 95.3 kg
[~2021-08-14 06:49] MED LIST changes: -ALBUAER3 IN; -CARV6.25 PO; -DEXA6TAB6 PO; -METH5T PO; -MIRT-68 PO; -PANT40TA2 PO
[2021-08-14] MEDS ORDERED: ANGIOMAX 250 MG VIAL IV ONE (07:37)
[2021-08-14] MEDS ORDERED: MIDAZOLAM HCL 2MG/2ML 2ml VIAL (1mg/ml) ONE (07:38)
[2021-08-14] MEDS ORDERED: IODIXANOL 320MG/ML 100ML BTL IV ONE (07:38)
[2021-08-14] MEDS ORDERED: fentaNYL CITRATE 100 MCG/2 ML VL ONE (07:38)
[2021-08-14] MEDS ORDERED: LIDOCAINE 2%HCL (LOCAL ANESTH.) INJ 20ML MDV ONE (07:38)
[2021-08-14] MEDS ORDERED: SODIUM CHL 0.9% 50 ML ONE (07:38)
[2021-08-14] MEDS ORDERED: IOHEXOL 350 MG/ML 100ML IJ ONE (07:39)
[2021-08-14] MEDS ORDERED: CLOPIDOGREL 300 MG TAB ONE (12:38)
== END 2021-08-14 15:00 | disposition home or self-care (01) ==
LOC: CATH 06:49
PROVIDERS: ATTEND Internal Medicine Cardiovascular Disease
DX: R94.39 Abnormal result of other cardiovascular function study (principal); I42.0 Dilated cardiomyopathy; I48.0 Paroxysmal atrial fibrillation; F41.9 Anxiety disorder, unspecified; G47.30 Sleep apnea, unspecified; Z82.49 Family history of ischemic heart disease and other diseases of the circulatory system; Z79.01 Long term (current) use of anticoagulants; Z79.82 Long term (current) use of aspirin; Z95.810 Presence of automatic (implantable) cardiac defibrillator; Z83.3 Family history of diabetes mellitus; Z82.0 Family history of epilepsy and other diseases of the nervous system; Z20.822 Contact with and (suspected) exposure to COVID-19
CPT/HCPCS: 93454; C1760; C1769; C1874; C1887; C1894; C9600; J0583; J1644; J2250; J3010; J7030; Q9967; U0003; 93458; 99152

== ENCOUNTER → 2022-03-10 | Outpatient (CLI) | payer MEDICAID | END | disposition home or self-care (01) | LOC: Rad HDHVI 14:53 | PROVIDERS: ATTEND Internal Medicine Cardiovascular Disease | DX: I08.1 Rheumatic disorders of both mitral and tricuspid valves (principal); R07.89 Other chest pain; R00.2 Palpitations | CPT/HCPCS: 93306 ==

== ENCOUNTER 2022-05-16 20:03 | Emergency (ER) | payer MEDICAID ==
[~2022-05-16] VITALS: Ht 160 cm; Wt 79.7 kg
[~2022-05-16 20:03] MED LIST changes: +ALBU108A5 INH; +CLOP75TA70 PO; +DEXA6TAB6 PO; +TAMS0.4C36 PO
[2022-05-16 21:55] LABS: Basophils # (auto) 0 10 ^3/uL (0-0.2); Basophils % (auto) 0.4 % (0.0-2.0); Eosinophils # (auto) 0 10 ^3/uL (0-0.8); Hematocrit 43.8 % (41.0-53.0); Hemoglobin 14.1 g/dL (13.5-17.5); Lymphocytes # (auto) 0.9 10 ^3/uL (0.4-5.4); Lymphocytes % (auto) 17.1 % (10.0-50.0); Mean Corpuscular Hemoglobin 29.7 pg (28.0-32.0); Mean Corpuscular Hgb Conc. 32.2 g/dL (32.0-36.0); Mean Corpuscular Volume 92.2 fL (80.0-100.0); Monocytes # (auto) 0.8 10 ^3/uL (0-1.3); Monocytes % (auto) 14.1 % (0.0-12.0); Neutrophils # (auto) 3.8 10 ^3/uL (1.6-8.6); Neutrophils % (auto) 68.4 % (37.0-80.0); Red Blood Cells 4.75 10^6/uL (4.5-5.90); White Blood Cell 5.5 10^3/uL (4.4-10.8)
[2022-05-16 22:15] LABS: Urine Bacteria NONE SEEN /hpf (None Seen); Urine Blood Negative /uL (Negative); Urine Mucus FEW (None Seen); Urine Specific Gravity 1.029 (1.001-1.035); Urine WBC 2 /hpf (0 - 3)
[2022-05-16 22:15] LABS: Albumin 3.7 g/dL (3.4-5.0); Calcium 8.7 mg/dL (8.5-10.1); INR 1.14 (0.9-1.15); Magnesium 2.2 mg/dL (1.6-2.6); Partial Thromboplastin Time 28.6 sec (24.6-33.4); Potassium 3.7 mmol/L (3.5-5.1)
[2022-05-16 22:19] LABS: BUN/Creatinine Ratio 14.3; Total Protein 6.7 g/dL (6.4-8.2)
[2022-05-16] MEDS ORDERED: METO-281 PO (23:34)
[2022-05-16 23:55] VITALS: BP 134/98
== END 2022-05-17 00:04 | disposition home or self-care (01) ==
LOC: ER 20:03
DX: R42 Dizziness and giddiness (principal); R11.2 Nausea with vomiting, unspecified; I11.0 Hypertensive heart disease with heart failure; I50.9 Heart failure, unspecified; I25.2 Old myocardial infarction; I25.10 Atherosclerotic heart disease of native coronary artery without angina pectoris; I48.91 Unspecified atrial fibrillation; E03.9 Hypothyroidism, unspecified; Z95.0 Presence of cardiac pacemaker; Z90.89 Acquired absence of other organs; Z79.82 Long term (current) use of aspirin; Z79.899 Other long term (current) drug therapy; Z88.8 Allergy status to other drugs, medicaments and biological substances
CPT/HCPCS: 36415; 71045; 80053; 81001; 83735; 83880; 84484; 85025; 85610; 85730; 93005

== ENCOUNTER 2022-07-25 12:01 | Inpatient (IN) | payer MEDICAID ==
[~2022-07-25] VITALS: Ht 157.5 cm; Wt 74.1 kg
[~2022-07-25 12:01] MED LIST changes: +METO-281 PO
[2022-07-25 12:57] LABS: Urine Bacteria NONE SEEN /hpf (None Seen); Urine Blood Negative /uL (Negative); Urine Hyaline Cast MOD /lpf (0 - 2); Urine Mucus FEW (None Seen); Urine Specific Gravity 1.025 (1.001-1.035); Urine WBC 3 /hpf (0 - 3)
[2022-07-25 13:14] LABS: Basophils # (auto) 0 10 ^3/uL (0-0.2); Basophils % (auto) 0.3 % (0.0-2.0); Eosinophils # (auto) 0 10 ^3/uL (0-0.8); Hematocrit 44.4 % (41.0-53.0); Hemoglobin 14.6 g/dL (13.5-17.5); Lymphocytes # (auto) 1.1 10 ^3/uL (0.4-5.4); Lymphocytes % (auto) 15.3 % (10.0-50.0); Mean Corpuscular Hemoglobin 31.2 pg (28.0-32.0); Mean Corpuscular Hgb Conc. 32.9 g/dL (32.0-36.0); Mean Corpuscular Volume 94.8 fL (80.0-100.0); Monocytes # (auto) 0.6 10 ^3/uL (0-1.3); Monocytes % (auto) 8.4 % (0.0-12.0); Neutrophils # (auto) 5.5 10 ^3/uL (1.6-8.6); Red Blood Cells 4.69 10^6/uL (4.5-5.90); Red Cell Distribution Width 15.5 % (11.8-14.3); White Blood Cell 7.2 10^3/uL (4.4-10.8)
[2022-07-25 14:02] LABS: Albumin 3.9 g/dL (3.4-5.0); Calcium 9.3 mg/dL (8.5-10.1); Potassium 3.5 mmol/L (3.5-5.1)
[2022-07-25 14:09] LABS: Bilirubin, Total 1.1 mg/dL (0.2-1.0)
[2022-07-25] MEDS ORDERED: ALBUTEROL SULF 2.5 MG/0.5ML(0.5%) NEB SOLN NEB ONE (21:30)
[2022-07-25] MEDS ORDERED: IPRATROPIUM BROM 0.5 MG/2.5ML INH SOL NEB ONE (21:30)
[2022-07-25] MEDS ORDERED: ONDANSETRON ODT 4 MG TAB PO ONE (22:30)
[2022-07-25] MEDS ORDERED: MECLIZINE HCL 25 MG TAB PO ONE (22:30)
[2022-07-25] MEDS ORDERED: ONDANSETRON HCL 4 MG/2 ML VIAL IV ONE (22:30)
[2022-07-25] MEDS ORDERED: ALUM & MAG HYDROX-SIMETH LIQ(MAALOX) 30 ML PO ONE (22:30)
[2022-07-26] MEDS ORDERED: ONDANSETRON HCL 4 MG/2 ML VIAL IV PRN (00:30)
[2022-07-26] MEDS ORDERED: HYDROcodone-ACET 5/325MG TAB PO PRN (00:30)
[2022-07-26] MEDS ORDERED: FUROSEMIDE 20 MG/2 ML VIAL IV ONE (00:30)
[2022-07-26] MEDS ORDERED: NITROGLYCERIN 0.4 MG SL TAB SL PRN (00:30)
[2022-07-26] MEDS ORDERED: DOCUSATE SOD 100 MG CAP PO PRN (00:30)
[2022-07-26] MEDS ORDERED: MORPHINE SULFATE INJ 2 MG/ml SYRG IV PRN (00:30)
[2022-07-26] MEDS ORDERED: MECLIZINE HCL 25 MG TAB PO PRN (00:30)
[2022-07-26] MEDS ORDERED: ACETAMINOPHEN 325 MG TAB PO PRN (00:30)
[2022-07-26 03:56] LABS: Basophils # (auto) 0 10 ^3/uL (0-0.2); Basophils % (auto) 0.4 % (0.0-2.0); Eosinophils # (auto) 0 10 ^3/uL (0-0.8); Hematocrit 46.3 % (41.0-53.0); Hemoglobin 15.2 g/dL (13.5-17.5); Lymphocytes # (auto) 1.4 10 ^3/uL (0.4-5.4); Lymphocytes % (auto) 19.2 % (10.0-50.0); Mean Corpuscular Hemoglobin 31.1 pg (28.0-32.0); Mean Corpuscular Hgb Conc. 32.8 g/dL (32.0-36.0); Monocytes # (auto) 0.8 10 ^3/uL (0-1.3); Monocytes % (auto) 10.5 % (0.0-12.0); Neutrophils # (auto) 5.2 10 ^3/uL (1.6-8.6); Neutrophils % (auto) 69.9 % (37.0-80.0); Nucleated Red Blood Cells % 0.1 %; Red Blood Cells 4.87 10^6/uL (4.5-5.90); Red Cell Distribution Width 15.9 % (11.8-14.3); White Blood Cell 7.5 10^3/uL (4.4-10.8)
[2022-07-26 04:26] LABS: Calcium 9.5 mg/dL (8.5-10.1); Potassium 3.7 mmol/L (3.5-5.1)
[2022-07-26 04:34] LABS: BUN/Creatinine Ratio 11.7; Bilirubin, Total 1.1 mg/dL (0.2-1.0); Total Protein 7.7 g/dL (6.4-8.2)
[2022-07-26] MEDS ORDERED: ALBUTEROL SULF HFA 90MCG INH 200DOSE IN SCH (06:00)
[2022-07-26] MEDS: FUROSEMIDE 20 MG/2 ML VIAL IV SCH (10:00)
[2022-07-26] MEDS: SODIUM CHLOR 0.9% PF (SALINE LOCK) 10ML VIAL/SYR IV SCH ×3 (16:48→23:08)
[2022-07-26] MEDS: CARVEDILOL 12.5 MG TAB PO SCH ×2 (16:48→23:11)
[2022-07-26] MEDS: ASPirin 81 mg TAB PO SCH (16:48)
[2022-07-27] VITALS (9 sets, daily range): BP systolic 104–122; BP diastolic 64–83
[2022-07-27 05:23] LABS: Basophils # (auto) 0 10 ^3/uL (0-0.2); Basophils % (auto) 0.5 % (0.0-2.0); Eosinophils # (auto) 0 10 ^3/uL (0-0.8); Eosinophils % (auto) 0.9 % (0.0-7.0); Hematocrit 42.7 % (41.0-53.0); Hemoglobin 14.3 g/dL (13.5-17.5); Lymphocytes # (auto) 1.1 10 ^3/uL (0.4-5.4); Lymphocytes % (auto) 23.7 % (10.0-50.0); Mean Corpuscular Hemoglobin 31.9 pg (28.0-32.0); Mean Corpuscular Hgb Conc. 33.5 g/dL (32.0-36.0); Mean Corpuscular Volume 95.3 fL (80.0-100.0); Monocytes # (auto) 0.5 10 ^3/uL (0-1.3); Monocytes % (auto) 10.8 % (0.0-12.0); Neutrophils # (auto) 3.1 10 ^3/uL (1.6-8.6); Neutrophils % (auto) 64.1 % (37.0-80.0); Nucleated Red Blood Cells % 0.2 %; Red Blood Cells 4.48 10^6/uL (4.5-5.90); Red Cell Distribution Width 15.9 % (11.8-14.3); White Blood Cell 4.8 10^3/uL (4.4-10.8)
[2022-07-27 05:44] LABS: Albumin 3.3 g/dL (3.4-5.0); Calcium 8.9 mg/dL (8.5-10.1); Potassium 4.1 mmol/L (3.5-5.1)
[2022-07-27 05:49] LABS: BUN/Creatinine Ratio 17.2; Bilirubin, Total 0.9 mg/dL (0.2-1.0); Total Protein 5.8 g/dL (6.4-8.2)
[2022-07-27] MEDS: SODIUM CHLOR 0.9% PF (SALINE LOCK) 10ML VIAL/SYR IV SCH ×3 (06:00→21:26)
[2022-07-27] MEDS: ASPirin 81 mg TAB PO SCH (09:01)
[2022-07-27] MEDS: FUROSEMIDE 20 MG/2 ML VIAL IV SCH (09:01)
[2022-07-27] MEDS: CARVEDILOL 12.5 MG TAB PO SCH ×2 (09:02→21:27)
[2022-07-27] MEDS ORDERED: ALUM & MAG HYDROX-SIMETH LIQ(MAALOX) 30 ML PO PRN (12:15)
[2022-07-27 13:27] LABS: Hepatitis B Surface Antibody Negative (Negative)
[2022-07-27 14:06] LABS: Hepatitis A Total Antibody Positive (Negative)
[2022-07-27 14:21] LABS: Hepatitis C Antibody Negative (Negative)
[2022-07-28] MEDS: SODIUM CHLOR 0.9% PF (SALINE LOCK) 10ML VIAL/SYR IV SCH ×3 (05:23→21:40)
[2022-07-28 05:30] VITALS: BP 118/89
[2022-07-28 09:00] VITALS: BP 103/68
[2022-07-28] MEDS: PANTOPRAZOLE 40 MG TAB PO SCH (09:27)
[2022-07-28] MEDS: ASPirin 81 mg TAB PO SCH (09:28)
[2022-07-28] MEDS: CARVEDILOL 12.5 MG TAB PO SCH ×2 (09:28→21:39)
[2022-07-28] MEDS: FUROSEMIDE 20 MG/2 ML VIAL IV SCH (09:29)
[2022-07-28 13:00] VITALS: BP 100/71
[2022-07-28 16:36] VITALS: BP 105/69
[2022-07-28 20:00] VITALS: BP 110/78
[2022-07-28 22:00] VITALS: BP 110/78
[2022-07-29 05:00] VITALS: BP 110/76
[2022-07-29] MEDS: SODIUM CHLOR 0.9% PF (SALINE LOCK) 10ML VIAL/SYR IV SCH ×2 (05:59→13:42)
[2022-07-29 09:00] VITALS: BP 110/73
[2022-07-29] MEDS: PANTOPRAZOLE 40 MG TAB PO SCH (09:30)
[2022-07-29] MEDS: FUROSEMIDE 20 MG/2 ML VIAL IV SCH (09:30)
[2022-07-29] MEDS: ASPirin 81 mg TAB PO SCH (09:30)
[2022-07-29] MEDS: CARVEDILOL 12.5 MG TAB PO SCH (09:31)
[2022-07-29 13:00] VITALS: BP 111/75
[2022-07-29] MEDS ORDERED: LORazepam 2MG/ML-1ML VIAL IV ONE (13:45)
[2022-07-29 16:34] VITALS: BP 114/72
== END 2022-07-29 18:55 | disposition home or self-care (01) | DRG 194 ==
LOC: ER 12:14 → TELE 07-26 00:32 → TELE-WESTW 07-26 23:50
PROVIDERS: ADMIT Nurse Practitioner Family; ATTEND Internal Medicine
DX: I11.0 Hypertensive heart disease with heart failure (principal); N17.9 Acute kidney failure, unspecified; I50.23 Acute on chronic systolic (congestive) heart failure; Z20.822 Contact with and (suspected) exposure to COVID-19; E11.9 Type 2 diabetes mellitus without complications; I48.91 Unspecified atrial fibrillation; E78.00 Pure hypercholesterolemia, unspecified; E89.0 Postprocedural hypothyroidism; I25.10 Atherosclerotic heart disease of native coronary artery without angina pectoris; I25.2 Old myocardial infarction; Z82.3 Family history of stroke; Z82.49 Family history of ischemic heart disease and other diseases of the circulatory system; Z83.3 Family history of diabetes mellitus; Z95.0 Presence of cardiac pacemaker; Z88.8 Allergy status to other drugs, medicaments and biological substances
CPT/HCPCS: 36415; 71046; 76705; 78226; 80053; 80329; 81001; 82728; 83880; 84484; 85025; 86704; 86706; 86708; 86803; 87340; 87426; 87804; 93005; 94640; G0378; J2405; Q0162

== ENCOUNTER 2023-01-22 18:43 | Inpatient (IN) | payer MEDICAID ==
[~2023-01-22] VITALS: Ht 165.1 cm; Wt 67.8 kg
[~2023-01-22 18:43] MED LIST changes: +AMIO200T13 PO; -AMIO200T4 PO; -CITA-77 PO; -DEXA6TAB6 PO; +LEVO100T8 PO; -ROSU10TA16 PO; +SPIR25TA PO; -TAMS0.4C36 PO; +TRAZ-227 PO; -TRAZ50TA2 PO; +VERI2.5T PO
[2023-01-22 19:12] LABS: Basophils # (auto) 0 10 ^3/uL (0-0.2); Basophils % (auto) 0.5 % (0.0-2.0); Eosinophils # (auto) 0 10 ^3/uL (0-0.8); Eosinophils % (auto) 0.2 % (0.0-7.0); Hematocrit 35.9 % (41.0-53.0); Hemoglobin 11.8 g/dL (13.5-17.5); Lymphocytes # (auto) 1.5 10 ^3/uL (0.4-5.4); Lymphocytes % (auto) 25.5 % (10.0-50.0); Mean Corpuscular Hemoglobin 29.1 pg (28.0-32.0); Mean Corpuscular Hgb Conc. 32.9 g/dL (32.0-36.0); Mean Corpuscular Volume 88.7 fL (80.0-100.0); Monocytes # (auto) 0.5 10 ^3/uL (0-1.3); Monocytes % (auto) 8.6 % (0.0-12.0); Neutrophils # (auto) 3.9 10 ^3/uL (1.6-8.6); Neutrophils % (auto) 65.2 % (37.0-80.0); Nucleated Red Blood Cells % 0.2 %; Red Blood Cells 4.05 10^6/uL (4.5-5.90); Red Cell Distribution Width 14.6 % (11.8-14.3); White Blood Cell 6.1 10^3/uL (4.4-10.8)
[2023-01-22 19:29] LABS: Calcium 8.6 mg/dL (8.5-10.1)
[2023-01-22 19:37] LABS: BUN/Creatinine Ratio 20.2 (10.0-20.0); Bilirubin, Total 0.8 mg/dL (0.2-1.0)
[2023-01-22 20:14] LABS: INR 1.13 (0.9-1.15); Partial Thromboplastin Time 29.4 sec (24.6-33.4)
[2023-01-22] MEDS ORDERED: PIPERACILLIN-TAZOB 3.375GM 100 ML IV ONE (21:00)
[2023-01-23] MEDS ORDERED: MORPHINE SULFATE INJ 2 MG/ml SYRG IV PRN (01:30)
[2023-01-23] MEDS ORDERED: FUROSEMIDE 40 MG/4 ML VIAL IV ONE (01:30)
[2023-01-23] MEDS ORDERED: NITROGLYCERIN 0.4 MG SL TAB SL PRN (01:30)
[2023-01-23] MEDS ORDERED: ACETAMINOPHEN 325 MG TAB PO PRN (01:30)
[2023-01-23] MEDS ORDERED: HYDROcodone-ACET 5/325MG TAB PO PRN (01:30)
[2023-01-23] MEDS ORDERED: ONDANSETRON HCL 4 MG/2 ML VIAL IV PRN (01:30)
[2023-01-23] MEDS: SODIUM CHLOR 0.9% PF (SALINE LOCK) 10ML VIAL/SYR IV SCH ×3 (05:51→22:19)
[2023-01-23 06:11] LABS: Albumin 3.5 g/dL (3.4-5.0); BUN/Creatinine Ratio 18.6 (10.0-20.0); Potassium 3.7 mmol/L (3.5-5.1)
[2023-01-23 06:14] LABS: Bilirubin, Total 0.8 mg/dL (0.2-1.0)
[2023-01-23] MEDS ORDERED: LEVOTHYROXINE SODIUM 100 MCG TAB PO SCH (07:00)
[2023-01-23 07:04] LABS: Basophils # (auto) 0 10 ^3/uL (0-0.2); Basophils % (auto) 0.5 % (0.0-2.0); Eosinophils # (auto) 0 10 ^3/uL (0-0.8); Eosinophils % (auto) 0.5 % (0.0-7.0); Hematocrit 34.6 % (41.0-53.0); Hemoglobin 11.4 g/dL (13.5-17.5); Lymphocytes # (auto) 1.3 10 ^3/uL (0.4-5.4); Lymphocytes % (auto) 19.6 % (10.0-50.0); Mean Corpuscular Hemoglobin 29.4 pg (28.0-32.0); Mean Corpuscular Volume 89.2 fL (80.0-100.0); Monocytes # (auto) 0.7 10 ^3/uL (0-1.3); Monocytes % (auto) 11.2 % (0.0-12.0); Neutrophils # (auto) 4.5 10 ^3/uL (1.6-8.6); Neutrophils % (auto) 68.2 % (37.0-80.0); Nucleated Red Blood Cells % 0.2 %; Red Blood Cells 3.87 10^6/uL (4.5-5.90); Red Cell Distribution Width 14.4 % (11.8-14.3); White Blood Cell 6.5 10^3/uL (4.4-10.8)
[2023-01-23 07:27] LABS: Urine WBC None Seen /hpf (0 - 3)
[2023-01-23 07:43] LABS: Urine Bacteria NONE SEEN /hpf (None Seen); Urine Blood Negative /uL (Negative); Urine Specific Gravity 1.009 (1.001-1.035)
[2023-01-23] MEDS: FUROSEMIDE 40 MG/4 ML VIAL IV SCH (07:44)
[2023-01-23] MEDS: APIXABAN 5 MG TAB PO SCH ×2 (07:45→22:19)
[2023-01-23] MEDS: ASPirin 81 mg TAB PO SCH (07:45)
[2023-01-23] MEDS: CARVEDILOL 3.125 MG TAB PO SCH ×2 (07:45→22:20)
[2023-01-23 07:52] LABS: Alcohol, Urine < 3.0 mg/dL (0-10); Amphetamine Screen, Urine NEGATIVE (NEGATIVE); Barbiturate Scree,Urine NEGATIVE (NEGATIVE); Benzodiazephine Screen, Urine NEGATIVE (NEGATIVE); Cannabinoid Screen, Urine NEGATIVE (NEGATIVE); Cocaine Screen, Urine NEGATIVE (NEGATIVE); Opiate Scree,Urine NEGATIVE (NEGATIVE); Phencyclidine Screen, Urine NEGATIVE (NEGATIVE)
[2023-01-23] MEDS ORDERED: LEVOTHYROXINE SODIUM 25 MCG TAB ONE (08:10)
[2023-01-23] MEDS ORDERED: LEVOTHYROXINE SODIUM 50 MCG TAB ONE (08:10)
[2023-01-23 23:00] VITALS: BP 105/72
[2023-01-24 05:00] VITALS: BP 109/72
[2023-01-24 05:34] LABS: Albumin 3.3 g/dL (3.4-5.0); Calcium 8.4 mg/dL (8.5-10.1); Potassium 3.8 mmol/L (3.5-5.1)
[2023-01-24 05:36] LABS: Basophils # (auto) 0 10 ^3/uL (0-0.2); Basophils % (auto) 0.7 % (0.0-2.0); Eosinophils # (auto) 0.1 10 ^3/uL (0-0.8); Eosinophils % (auto) 1.1 % (0.0-7.0); Hematocrit 32.8 % (41.0-53.0); Hemoglobin 10.8 g/dL (13.5-17.5); Lymphocytes # (auto) 1.1 10 ^3/uL (0.4-5.4); Mean Corpuscular Hemoglobin 29.1 pg (28.0-32.0); Mean Corpuscular Hgb Conc. 32.9 g/dL (32.0-36.0); Mean Corpuscular Volume 88.7 fL (80.0-100.0); Monocytes # (auto) 0.6 10 ^3/uL (0-1.3); Monocytes % (auto) 13.3 % (0.0-12.0); Neutrophils % (auto) 61.9 % (37.0-80.0); Nucleated Red Blood Cells % 0.2 %; Red Cell Distribution Width 14.4 % (11.8-14.3); White Blood Cell 4.9 10^3/uL (4.4-10.8)
[2023-01-24 05:39] LABS: Bilirubin, Total 0.7 mg/dL (0.2-1.0); Total Protein 5.8 g/dL (6.4-8.2)
[2023-01-24] MEDS: SODIUM CHLOR 0.9% PF (SALINE LOCK) 10ML VIAL/SYR IV SCH ×3 (06:11→22:00)
[2023-01-24] MEDS: LEVOTHYROXINE SODIUM 25 MCG TAB PO SCH (06:11)
[2023-01-24 07:27] LABS: BUN/Creatinine Ratio 21.8 (10.0-20.0)
[2023-01-24 09:00] VITALS: BP 105/71
[2023-01-24] MEDS: CARVEDILOL 3.125 MG TAB PO SCH ×2 (09:26→21:30)
[2023-01-24] MEDS: ASPirin 81 mg TAB PO SCH (09:26)
[2023-01-24] MEDS: APIXABAN 5 MG TAB PO SCH ×2 (09:26→21:28)
[2023-01-24] MEDS: FUROSEMIDE 40 MG/4 ML VIAL IV SCH (09:30)
[2023-01-24 12:56] VITALS: BP 92/66
[2023-01-24 16:56] VITALS: BP 98/66
[2023-01-24] MEDS: DOCUSATE SOD 100 MG CAP PO PRN (21:31)
[2023-01-24 22:00] VITALS: BP 100/75
[2023-01-25 05:18] VITALS: BP 106/74
[2023-01-25] MEDS: LEVOTHYROXINE SODIUM 25 MCG TAB PO SCH (06:10)
[2023-01-25] MEDS: SODIUM CHLOR 0.9% PF (SALINE LOCK) 10ML VIAL/SYR IV SCH ×2 (06:11→09:20)
[2023-01-25 08:10] VITALS: BP 108/80
[2023-01-25 09:00] VITALS: BP 108/80
[2023-01-25] MEDS: ASPirin 81 mg TAB PO SCH (09:18)
[2023-01-25] MEDS: APIXABAN 5 MG TAB PO SCH (09:18)
[2023-01-25] MEDS: FUROSEMIDE 40 MG/4 ML VIAL IV SCH (09:19)
[2023-01-25] MEDS: CARVEDILOL 3.125 MG TAB PO SCH (09:19)
[2023-01-25] MEDS: DOCUSATE SOD 100 MG CAP PO PRN (11:00)
[2023-01-25] MEDS ORDERED: FURO1TAB31 PO (11:13)
[2023-01-25 12:05] VITALS: BP 108/80
== END 2023-01-25 15:37 | disposition home or self-care (01) | DRG 194 ==
LOC: ER 18:43 → TELE 01-23 01:16 → TELE-CENTR 01-23 22:35
PROVIDERS: ADMIT Nurse Practitioner Family; ATTEND Internal Medicine
DX: I11.0 Hypertensive heart disease with heart failure (principal); I42.9 Cardiomyopathy, unspecified; I25.10 Atherosclerotic heart disease of native coronary artery without angina pectoris; I50.43 Acute on chronic combined systolic (congestive) and diastolic (congestive) heart failure; R09.89 Other specified symptoms and signs involving the circulatory and respiratory systems; R79.89 Other specified abnormal findings of blood chemistry; Z20.822 Contact with and (suspected) exposure to COVID-19; E78.5 Hyperlipidemia, unspecified; E89.0 Postprocedural hypothyroidism; I48.91 Unspecified atrial fibrillation; Z82.49 Family history of ischemic heart disease and other diseases of the circulatory system; Z83.3 Family history of diabetes mellitus; Z95.0 Presence of cardiac pacemaker; Z95.5 Presence of coronary angioplasty implant and graft; I25.2 Old myocardial infarction; Z88.8 Allergy status to other drugs, medicaments and biological substances
CPT/HCPCS: 36415; 71045; 80053; 80307; 81001; 83605; 83880; 84484; 85025; 85379; 85610; 85730; 87040; 87426; 87804; 93005; 96365; 96375; G0378; J2543

== ENCOUNTER → 2023-02-11 | Outpatient (CLI) | payer MEDICAID ==
[~2023-02-11] MED LIST changes: +FURO1TAB31 PO; -FURO20TA3 PO
== END | disposition home or self-care (01) ==
LOC: Rad HDHVI 09:56
PROVIDERS: ATTEND Internal Medicine Cardiovascular Disease
DX: I08.8 Other rheumatic multiple valve diseases (principal); R00.2 Palpitations; R07.89 Other chest pain
CPT/HCPCS: 93306

== ENCOUNTER → 2023-05-05 | Outpatient (CLI) | payer MEDICAID ==
[2023-05-05 08:30] VITALS: BP 106/66; PULSE 69; RESP 16; O2SAT 95
[2023-05-05 08:40] VITALS: BP 107/63; PULSE 73; RESP 16; O2SAT 95
== END | disposition home or self-care (01) ==
LOC: Rad HDHVI 08:21
PROVIDERS: ATTEND Internal Medicine Cardiovascular Disease
DX: Z01.818 Encounter for other preprocedural examination (principal); Z45.02 Encounter for adjustment and management of automatic implantable cardiac defibrillator; I44.7 Left bundle-branch block, unspecified; R94.31 Abnormal electrocardiogram [ECG] [EKG]
CPT/HCPCS: 71046; 93005; G0463

== ENCOUNTER 2023-05-06 08:59 | Inpatient (IN) | payer MEDICAID ==
[2023-05-05 09:51] LABS: Basophils # (auto) 0 10 ^3/uL (0-0.2); Basophils % (auto) 0.4 % (0.0-2.0); Eosinophils # (auto) 0.1 10 ^3/uL (0-0.8); Eosinophils % (auto) 0.9 % (0.0-7.0); Hematocrit 39.2 % (41.0-53.0); Hemoglobin 12.7 g/dL (13.5-17.5); Lymphocytes # (auto) 1.1 10 ^3/uL (0.4-5.4); Lymphocytes % (auto) 18.7 % (10.0-50.0); Mean Corpuscular Hgb Conc. 32.4 g/dL (32.0-36.0); Mean Corpuscular Volume 86.3 fL (80.0-100.0); Monocytes # (auto) 0.8 10 ^3/uL (0-1.3); Monocytes % (auto) 13.3 % (0.0-12.0); Neutrophils % (auto) 66.7 % (37.0-80.0); Nucleated Red Blood Cells % 0.1 %; Red Blood Cells 4.54 10^6/uL (4.5-5.90); Red Cell Distribution Width 16.9 % (11.8-14.3)
[2023-05-05 10:08] LABS: INR 1.07 (0.9-1.15); Partial Thromboplastin Time 26.5 SEC (24.5-34.5); Prothrombin Time 11.2 sec (9.3-11.8)
[2023-05-05 10:54] LABS: Calcium 9.2 mg/dL (8.5-10.1); Chloride 109 mmol/L (98-107); Potassium 4.5 mmol/L (3.5-5.1); Sodium 143 mmol/L (136-145)
[2023-05-05 10:55] LABS: Anion Gap 3.4 (5-15); Carbon Dioxide 30.6 mmol/L (20-30)
[2023-05-05 11:00] LABS: BUN/Creatinine Ratio 20.3 (10.0-20.0); Blood Urea Nitrogen 25 mg/dL (9-23); Glucose 97 mg/dL (74-106)
[~2023-05-06] VITALS: Ht 160 cm; Wt 73.8 kg
[2023-05-06] VITALS (14 sets, daily range): BP systolic 70–123; BP diastolic 41–80; PULSE 70–84; RESP 12–20; TEMP 97.9; O2SAT 90–97
[~2023-05-06 08:59] MED LIST changes: -ASPI-543 PO; -CHOL20007 PO; -METO-281 PO; -SPIR25TA PO
[2023-05-06] MEDS ORDERED: VANCOMYCIN 1GM/250ML 250 ML IV ONE ×2 (10:15→16:02)
[2023-05-06] MEDS ORDERED: VANCOMYCIN HCL 1000 MG VL ONE (16:01)
[2023-05-06] MEDS ORDERED: MIDAZOLAM HCL 2MG/2ML 2ml VIAL (1mg/ml) ONE (16:01)
[2023-05-06] MEDS ORDERED: fentaNYL CITRATE 100 MCG/2 ML VL ONE (16:01)
[2023-05-06] MEDS ORDERED: LIDOCAINE 2%HCL (LOCAL ANESTH.) INJ 20ML MDV ONE ×2 (16:02→17:14)
[2023-05-06] MEDS ORDERED: IOHEXOL 350 MG/ML 100ML IJ ONE (17:14)
[2023-05-06] MEDS ORDERED: FUROSEMIDE 20 MG/2 ML VIAL ONE (17:32)
[2023-05-06] MEDS ORDERED: SODIUM CHL 0.9% 500 ML IV ONE (18:00)
[2023-05-06] MEDS ORDERED: ONDANSETRON HCL 4 MG/2 ML VIAL ONE (18:16)
[2023-05-06] MEDS ORDERED: ACETAMINOPHEN 325 MG TAB PO PRN (18:30)
[2023-05-06] MEDS ORDERED: NITROGLYCERIN 0.4 MG SL TAB SL PRN (18:30)
[2023-05-06] MEDS ORDERED: ONDANSETRON HCL 4 MG/2 ML VIAL IV PRN (18:30)
[2023-05-06] MEDS ORDERED: SODIUM CHLORIDE 0.9% 1,000 ML IV SCH (19:30)
[2023-05-07] MEDS: ceFAZolin 1GM/50ML 50 ML IV SCH ×3 (02:00→10:29)
[2023-05-07] MEDS ORDERED: VANCOMYCIN 1GM/250ML 250 ML IV ONE (04:30)
[2023-05-07 05:00] VITALS: BP 102/59; PULSE 62; RESP 16; TEMP 97.8; O2SAT 99
[2023-05-07 08:00] VITALS: PULSE 70
[2023-05-07 08:20] VITALS: PULSE 70; RESP 18; O2SAT 90
[2023-05-07 09:02] VITALS: BP 123/101; PULSE 97; RESP 22; TEMP 98.6; O2SAT 96
[2023-05-07 13:02] VITALS: BP 179/94; PULSE 85; RESP 20; TEMP 98.4; O2SAT 95
[2023-05-07 14:21] VITALS: TEMP 36.9
== END 2023-05-07 15:30 | disposition home or self-care (01) | DRG 179 ==
LOC: CATH 08:59 → TELE 18:53 → TELE-WESTW 19:55
PROVIDERS: ADMIT Internal Medicine Cardiovascular Disease; ATTEND Internal Medicine Cardiovascular Disease
PROC: 02H63KZ Insertion of Defibrillator Lead into Right Atrium, Percutaneous Approach (ICD-10-PCS; 2023-05-06)
PROC: 0JH608Z Insertion of Defibrillator Generator into Chest Subcutaneous Tissue and Fascia, Open Approach (ICD-10-PCS; 2023-05-06)
PROC: 02PA0MZ Removal of Cardiac Lead from Heart, Open Approach (ICD-10-PCS; 2023-05-06)
PROC: 02HK3KZ Insertion of Defibrillator Lead into Right Ventricle, Percutaneous Approach (ICD-10-PCS; 2023-05-06)
PROC: 0JPT0PZ Removal of Cardiac Rhythm Related Device from Trunk Subcutaneous Tissue and Fascia, Open Approach (ICD-10-PCS; 2023-05-06)
PROC: 4A023N7 Measurement of Cardiac Sampling and Pressure, Left Heart, Percutaneous Approach (ICD-10-PCS; principal; 2023-05-07)
PROC: B2111ZZ Fluoroscopy of Multiple Coronary Arteries using Low Osmolar Contrast (ICD-10-PCS; 2023-05-07)
PROC: B2151ZZ Fluoroscopy of Left Heart using Low Osmolar Contrast (ICD-10-PCS; 2023-05-07)
PROC: B5171ZZ Fluoroscopy of Left Subclavian Vein using Low Osmolar Contrast (ICD-10-PCS; 2023-05-07)
DX: I25.5 Ischemic cardiomyopathy (principal); I11.0 Hypertensive heart disease with heart failure; I50.22 Chronic systolic (congestive) heart failure; E78.5 Hyperlipidemia, unspecified; E89.0 Postprocedural hypothyroidism; I25.10 Atherosclerotic heart disease of native coronary artery without angina pectoris; I48.91 Unspecified atrial fibrillation; Z95.810 Presence of automatic (implantable) cardiac defibrillator; Z83.3 Family history of diabetes mellitus; Z82.3 Family history of stroke; Z82.0 Family history of epilepsy and other diseases of the nervous system; I25.2 Old myocardial infarction
CPT/HCPCS: 33263; 36415; 71045; 80048; 85025; 85610; 85730; 93005; 93458; G0378; J0690; J2250; J2405

== ENCOUNTER → 2024-02-09 | Outpatient (CLI) | payer MEDICAID ==
[~2024-02-09] VITALS: Ht 157.5 cm; Wt 81.6 kg
== END | disposition home or self-care (01) ==
LOC: Rad HDHVI 08:42
PROVIDERS: ATTEND Internal Medicine Cardiovascular Disease
DX: I44.7 Left bundle-branch block, unspecified (principal); R00.0 Tachycardia, unspecified; I25.5 Ischemic cardiomyopathy; I25.10 Atherosclerotic heart disease of native coronary artery without angina pectoris; I51.7 Cardiomegaly; I42.0 Dilated cardiomyopathy; I25.2 Old myocardial infarction; E78.5 Hyperlipidemia, unspecified; I49.5 Sick sinus syndrome; I80.13 Phlebitis and thrombophlebitis of femoral vein, bilateral; R42 Dizziness and giddiness; Z95.810 Presence of automatic (implantable) cardiac defibrillator; Z79.899 Other long term (current) drug therapy
CPT/HCPCS: 78452; 93017; 96374; A9500

== ENCOUNTER → 2024-02-15 | Outpatient (CLI) | payer MEDICAID | END | disposition home or self-care (01) | LOC: Rad HDHVI 09:41 | PROVIDERS: ATTEND Internal Medicine Cardiovascular Disease | DX: I34.0 Nonrheumatic mitral (valve) insufficiency (principal); R00.2 Palpitations; I10 Essential (primary) hypertension | CPT/HCPCS: 93306 ==

== ENCOUNTER 2025-01-25 10:52 | Outpatient (CLI) | payer MEDICAID | END 2025-01-25 17:00 | disposition home or self-care (01) | LOC: Rad HDHVI 10:52 | PROVIDERS: ATTEND Internal Medicine Cardiovascular Disease | DX: I08.0 Rheumatic disorders of both mitral and aortic valves (principal); I11.0 Hypertensive heart disease with heart failure; I50.9 Heart failure, unspecified | CPT/HCPCS: 93306 ==